=== PATIENT | female | born 1980 | race Caucasian/White ===

== ENCOUNTER 2018-04-25 15:58 | Emergency (ER) | payer BC, MEDICAID ==
[2018-04-25] MEDS: NS 0.9% 1000 ML* 2,000 ML IV ONE ×2 (16:56→16:57)
[2018-04-25 17:08] LABS: ABS Basophils 0.1 10^3/ul (0-0.2); ABS Eosinophils 0.1 10^3/ul (0-0.6); ABS Lymphocytes 1.6 10^3/ul (1.0-4.8); ABS Monocytes 0.3 10^3/ul (0-0.8); ABS Neutrophils 4.2 10^3/ul (1.5-7.7); ABS Nucleated RBC 0 10^3/ul; Eosinophil % 2.1 % (0-6); Hematocrit 33 % (35-47); Hemoglobin 10.3 g/dl (12.0-16.0); Lymphocyte % 25.4 % (25-47); Mean Corpuscular HGB Conc 31 g/dl (31-36); Mean Corpuscular Hemoglobin 22 pg (27-31); Mean Corpuscular Volume 71 fL (80-97); Mean Platelet Volume 9.8 um3 (7.4-10.4); Nucleated Red Blood Cells % 0.1; Platelet Count 205 10^3/ul (150-450); Red Blood Count 4.63 10^6/ul (4.0-5.4); Red Cell Distribution Width 19 % (10.5-15); White Blood Count 6.4 10^3/ul (3.5-10.8)
[2018-04-25 17:21] LABS: EGFR Non-African American 67.1 (>60)
--- NOTE | 2018-04-25 17:45 | RAD ---
INDICATION: Hyperglycemia. Asthma. COMPARISON: November 04, 2016 CT. TECHNIQUE: Dual energy PA and routine lateral views of the chest were obtained. REPORT: Clear lungs and pleural spaces. Negative for pneumothorax. The heart, pulmonary vasculature, and mediastinal contours are unremarkable. Unremarkable osseous structures and soft tissue contours accounting for obese body habitus. IMPRESSION: No evidence for pneumonia. No acute cardiopulmonary process evident.
[2018-04-25] MEDS ORDERED: Insulin REGULAR(*) 1 UNITS UNIT IV PUSH ONE (17:49)
[2018-04-25 17:51] LABS: Urine Appearance Clear; Urine Blood 3+ (Negative); Urine Color Yellow; Urine Ketones 2+ (Negative); Urine Protein 1+(30 mg/dL) (Negative); Urine Specific Gravity 1.032 (1.010-1.030); Urine Urobilinogen Negative (Negative)
[2018-04-25] MEDS ORDERED: NS 0.9% 1000 ML* 1,000 ML IV ONE (19:26)
[2018-04-25 19:47] LABS: Urine Appearance Cloudy; Urine Blood 3+ (Negative); Urine Color Yellow; Urine Ketones 2+ (Negative); Urine Protein Negative (Negative); Urine Specific Gravity 1.032 (1.010-1.030); Urine Urobilinogen Negative (Negative)
[2018-04-25 19:57] LABS: EGFR Non-African American 74.5 (>60)
[2018-04-25] MEDS ORDERED: Dextrose 50% Syringe 50 ML* 25 GM/50 ML SYRINGE IV PUSH PRN (20:14)
[2018-04-25] MEDS ORDERED: NS 0.9% 1000 ML* 1,000 ML IV SCH (20:15)
--- NOTE | 2018-04-25 21:41 | CONSULT ---
Consult Consult: PCP: Adilia Aguilar MD Date/Time: 04/25/20182009 Reason for Consult: mild DKA HPI: Mrs Fuentes is a 37YO HX DM2 previously on metformin until May of 2017 when she lost her insurance and reports being unable to afford it. She was advised that it is on the [employer] $4 formulary with a 3-month supply costing ~$ 10 regardless of insurance. She has been having polydipsia, polyuria, and weight loss. She denies F/C, cough, congestion, or other issues. She was given 6units regular insulin and 3L NS via ED with request for consideration of admission. However, while she is in a very mild DKA she can likely be managed more aggressively in the ED allowing for discharge. I have ordered an additional 10units SQ lispro and 2 more liters NS with a recheck BNP at 2200. PMedHx DM2 super morbid obesity Ambulatory Orders NK [No Home Medications Reported] 04/25/18 Allergies No Known Allergies Allergy (Verified 09/21/13 22:13) PSurgHx B 6th toe amputations as an SocHx: denies tobacco and recreational drugs, rare alcohol; single, no children ; full code status FamHx: Mother: multiple myeloma; Father: lung CA & CAD; sister: oral CA ROS: as above, otherwise reviewed and all were negative vitals: Vital Signs Temp 36.7 C 04/25/18 16:03 Pulse 101 04/25/18 19:41 Resp 17 04/25/18 20:10 BP 162/92 04/25/18 20:10 Pulse Ox 98 04/25/18 19:41 Intake & Output 04/24/18 04/25/18 04/25/18 23:59 11:59 23:59 Intake Total 4000 Balance 4000 Weight 140.16 kg Intake: IV Fluids 1999 IVPB 1999 Constitutional: NAD, normally developed, super morbidly obese female HEENM: atraumatic; sclera/conjunctiva: anicteric/clear; hearing: clinically intact; oropharynx: clear, dry Neck: soft tissue: non-tender; thyroid: normal Pulmonary: clear to auscultation bilaterally, good aeration, no accessory muscle use CV: RR/RR, normal S1S2, no carotid bruit, no jugular venous distention, 2+ B DP/ PT, no edema Abdominal: soft, non-distended, non-tender, no rebound/guarding/rigidity, normoactive bowel sounds, no hepatosplenomegaly or masses, no costovertebral angle tenderness Musculoskeletal: general: grossly intact, non-tender Integumental: normal appearance and texture of exposed skin Psychiatric orientation: AA&O to PPS affect: calm mood: cooperative eye contact: fair to good content: reliable responses: timely insight: fair Testing: Lab Results 04/25/18 04/25/18 04/25/18 Range/Units 16:56 16:56 16:56 WBC 6.4 (3.5-10.8) 10^3/ul RBC 4.63 (4.0-5.4) 10^6/ul Hgb 10.3 L (12.0-16.0) g/dl Hct 33 L (35-47) % MCV 71 L (80-97) fL MCH 22 L (27-31) pg MCHC 31 (31-36) g/dl RDW 19 H (10.5-15) % Plt Count 205 (150-450) 10^3/ul MPV 9.8 (7.4-10.4) um3 Neut % (Auto) 66.4 (38-83) % Lymph % (Auto) 25.4 (25-47) % [place] % (Auto) 4.5 (0-7) % Eos % (Auto) 2.1 (0-6) % Baso % (Auto) 1.6 (0-2) % Absolute Neuts (auto) 4.2 (1.5-7.7) 10^3/ul Absolute Lymphs (auto) 1.6 (1.0-4.8) 10^3/ul Absolute Monos (auto) 0.3 (0-0.8) 10^3/ul Absolute Eos (auto) 0.1 (0-0.6) 10^3/ul Absolute Basos (auto) 0.1 (0-0.2) 10^3/ul Absolute Nucleated RBC 0 10^3/ul Nucleated RBC % 0.1 VBG pH (7.33-7.43) VBG pCO2 (41-51) mmHg VBG pO2 (35-45) mmHg VBG HCO3 (24-28) mmol/L VBG O2 Saturation (70-80) % VBG Base Excess (0-4) Sodium 137 L (139-145) mmol/L Potassium 4.3 (3.5-5.0) mmol/L Chloride 102 (101-111) mmol/L Carbon Dioxide 20 L (22-32) mmol/L Anion Gap 15 H (2-11) mmol/L BUN 8 (6-24) mg/dL Creatinine 0.93 (0.51-0.95) mg/dL Est GFR ( Amer) 86.3 (>60) Est GFR (Non-Af Amer) 67.1 (>60) BUN/Creatinine Ratio 8.6 (8-20) Glucose 355 H (70-100) mg/dL POC Glucose (mg/dL) (70-100) mg/dL Lactic Acid 0.9 (0.5-2.0) mmol/L Calcium 8.8 (8.6-10.3) mg/dL Total Bilirubin 0.50 (0.2-1.0) mg/dL AST 49 H (13-39) U/L ALT 55 H (7-52) U/L Alkaline Phosphatase 76 (34-104) U/L Total Creatine Kinase 97 (10-223) U/L C-Reactive Protein 5.09 H (< 5.00) mg/L Total Protein 7.5 (6.4-8.9) g/dL Albumin 4.2 (3.2-5.2) g/dL Globulin 3.3 (2-4) g/dL Albumin/Globulin Ratio 1.3 (1-3) Beta HCG, Quant < 0.60 mIU/mL Urine Color Urine Appearance Urine pH (5-9) Ur Specific [place] (1.010-1.030) Urine Protein (Negative) Urine Ketones (Negative) Urine Blood (Negative) Urine Nitrate (Negative) Urine Bilirubin (Negative) Urine Urobilinogen (Negative) Ur Leukocyte Esterase (Negative) Urine WBC (Auto) (Absent) Urine RBC (Auto) (Absent) Ur Squamous Epith Cells (Absent) Urine Bacteria (Absent) Urine Yeast (Absent) Urine Glucose (Negative) 04/25/18 04/25/18 04/25/18 Range/Units 16:56 17:36 19:29 WBC (3.5-10.8) 10^3/ul RBC (4.0-5.4) 10^6/ul Hgb (12.0-16.0) g/dl Hct (35-47) % MCV (80-97) fL MCH (27-31) pg MCHC (31-36) g/dl RDW (10.5-15) % Plt Count (150-450) 10^3/ul MPV (7.4-10.4) um3 Neut % (Auto) (38-83) % Lymph % (Auto) (25-47) % [place] % (Auto) (0-7) % Eos % (Auto) (0-6) % Baso % (Auto) (0-2) % Absolute Neuts (auto) (1.5-7.7) 10^3/ul Absolute Lymphs (auto) (1.0-4.8) 10^3/ul Absolute Monos (auto) (0-0.8) 10^3/ul Absolute Eos (auto) (0-0.6) 10^3/ul Absolute Basos (auto) (0-0.2) 10^3/ul Absolute Nucleated RBC 10^3/ul Nucleated RBC % VBG pH 7.30 L (7.33-7.43) VBG pCO2 38 L (41-51) mmHg VBG pO2 38 (35-45) mmHg VBG HCO3 18.9 L (24-28) mmol/L VBG O2 Saturation 74.8 (70-80) % VBG Base Excess -7.1 L (0-4) Sodium (139-145) mmol/L Potassium (3.5-5.0) mmol/L Chloride (101-111) mmol/L Carbon Dioxide (22-32) mmol/L Anion Gap (2-11) mmol/L BUN (6-24) mg/dL Creatinine (0.51-0.95) mg/dL Est GFR ( Amer) (>60) Est GFR (Non-Af Amer) (>60) BUN/Creatinine Ratio (8-20) Glucose (70-100) mg/dL POC Glucose (mg/dL) (70-100) mg/dL Lactic Acid (0.5-2.0) mmol/L Calcium (8.6-10.3) mg/dL Total Bilirubin (0.2-1.0) mg/dL AST (13-39) U/L ALT (7-52) U/L Alkaline Phosphatase (34-104) U/L Total Creatine Kinase (10-223) U/L C-Reactive Protein (< 5.00) mg/L Total Protein (6.4-8.9) g/dL Albumin (3.2-5.2) g/dL Globulin (2-4) g/dL Albumin/Globulin Ratio (1-3) Beta HCG, Quant mIU/mL Urine Color Yellow Yellow Urine Appearance Clear Cloudy Urine pH 5.0 5.0 (5-9) Ur Specific [place] 1.032 H 1.032 H (1.010-1.030) Urine Protein 1+(30 mg/dl) A Negative (Negative) Urine Ketones 2+ A 2+ A (Negative) Urine Blood 3+ A 3+ A (Negative) Urine Nitrate Negative Negative (Negative) Urine Bilirubin Negative Negative (Negative) Urine Urobilinogen Negative Negative (Negative) Ur Leukocyte Esterase Negative Trace A (Negative) Urine WBC (Auto) 2+(11-20/hpf) A 2+(11-20/hpf) A (Absent) Urine RBC (Auto) 3+(>10/hpf) A 3+(>10/hpf) A (Absent) Ur Squamous Epith Cells Present A Present A (Absent) Urine Bacteria 1+ A Absent (Absent) Urine Yeast Present A (Absent) Urine Glucose 3+(>=500 mg/dl) A 3+(>=500 mg/dl) A (Negative) 04/25/18 04/25/18 04/25/18 Range/Units 19:31 19:46 22:46 WBC (3.5-10.8) 10^3/ul RBC (4.0-5.4) 10^6/ul Hgb (12.0-16.0) g/dl Hct (35-47) % MCV (80-97) fL MCH (27-31) pg MCHC (31-36) g/dl RDW (10.5-15) % Plt Count (150-450) 10^3/ul MPV (7.4-10.4) um3 Neut % (Auto) (38-83) % Lymph % (Auto) (25-47) % [place] % (Auto) (0-7) % Eos % (Auto) (0-6) % Baso % (Auto) (0-2) % Absolute Neuts (auto) (1.5-7.7) 10^3/ul Absolute Lymphs (auto) (1.0-4.8) 10^3/ul Absolute Monos (auto) (0-0.8) 10^3/ul Absolute Eos (auto) (0-0.6) 10^3/ul Absolute Basos (auto) (0-0.2) 10^3/ul Absolute Nucleated RBC 10^3/ul Nucleated RBC % VBG pH (7.33-7.43) VBG pCO2 (41-51) mmHg VBG pO2 (35-45) mmHg VBG HCO3 (24-28) mmol/L VBG O2 Saturation (70-80) % VBG Base Excess (0-4) Sodium 137 L 137 L (139-145) mmol/L Potassium 4.0 3.8 (3.5-5.0) mmol/L Chloride 105 108 (101-111) mmol/L Carbon Dioxide 18 L 20 L (22-32) mmol/L Anion Gap 14 H 9 (2-11) mmol/L BUN 8 9 (6-24) mg/dL Creatinine 0.85 0.90 (0.51-0.95) mg/dL Est GFR ( Amer) 95.8 89.6 (>60) Est GFR (Non-Af Amer) 74.5 69.7 (>60) BUN/Creatinine Ratio 9.4 10.0 (8-20) Glucose 281 H 308 H (70-100) mg/dL POC Glucose (mg/dL) 273 H (70-100) mg/dL Lactic Acid (0.5-2.0) mmol/L Calcium 8.5 L 8.3 L (8.6-10.3) mg/dL Total Bilirubin (0.2-1.0) mg/dL AST (13-39) U/L ALT (7-52) U/L Alkaline Phosphatase (34-104) U/L Total Creatine Kinase (10-223) U/L C-Reactive Protein (< 5.00) mg/L Total Protein (6.4-8.9) g/dL Albumin (3.2-5.2) g/dL Globulin (2-4) g/dL Albumin/Globulin Ratio (1-3) Beta HCG, Quant mIU/mL Urine Color Urine Appearance Urine pH (5-9) Ur Specific [place] (1.010-1.030) Urine Protein (Negative) Urine Ketones (Negative) Urine Blood (Negative) Urine Nitrate (Negative) Urine Bilirubin (Negative) Urine Urobilinogen (Negative) Ur Leukocyte Esterase (Negative) Urine WBC (Auto) (Absent) Urine RBC (Auto) (Absent) Ur Squamous Epith Cells (Absent) Urine Bacteria (Absent) Urine Yeast (Absent) Urine Glucose (Negative) CXR, personally reviewed: IMPRESSION: No evidence for pneumonia. No acute cardiopulmonary process evident. Impression: 37F HX DIAGNOSIS & PLAN Primary mild DKA : add A1c to ED labs : IVFs : insulin : recheck labs revealed resolution of her anion gap : Rx for 500mg metformin ER 2 tabs BID #[id number] sent to [facility] pharmacy : Call PCP Saturday AM for appointment within the next 2 weeks (prior to running out of metformin) : Return to ED for any symptoms worrisome enough to warrant emergency evaluation. Secondary super morbid obesity : diet & exercise for weight loss, consider surgical referral as outpatient
[2018-04-25 23:15] LABS: EGFR Non-African American 69.7 (>60)
[2018-04-26 00:08] VITALS: BP 158/74
--- NOTE | 2018-04-26 14:14 | ED ---
Boris Grimm Rebecca, scribed for Dell Villalba MD on 04/25/18 at 1641 . HPI Diabetic - HPI Summary HPI Summary: Pt is a 37 y/o F who presents to ED c/o elevated BG and recent weight loss. Pt reports that in the last 1.5 weeks, she has lost 23 pounds. At home her BG was 346 and after eating lunch, it was 392. Additionally c/o polyuria (every 20 minutes) and polydipsia, drinking about 3 gallons of water a day. PMHx DM - has not been on medication since July 2017 as she previously did not have insurance. Negative PMHx HTN. - History Of Current Complaint Chief Complaint: EDDiabeticProb Time Seen by Provider: 04/25/18 16:26 Hx Obtained From: Patient Hx Last Menstrual Period: 10/25/16 Onset/Duration: Still Present Severity Currently: None Character: Alert Aggravating: Nothing Alleviating: Nothing Associated Signs & Symptoms: Polydipsia, Polyuria - Allergies/Home Medications Allergies/Adverse Reactions: Allergies Allergy/AdvReac Type Severity Reaction Status Date / Time No Known Allergies Allergy Verified 09/21/13 22:13 Home Medications: Home Medications NK [No Home Medications Reported] 04/25/18 [History Confirmed 04/25/18] PMH/Surg Hx/FS Hx/Imm Hx Endocrine/Hematology History: Reports: Hx Diabetes Cardiovascular History: Denies: Hx Hypertension Respiratory History: Reports: Hx Asthma Sensory History: Reports: Hx Contacts or Glasses Opthamlomology History: Reports: Hx Contacts or Glasses - Surgical History Surgery Procedure, Year, and Place: TOE REMOVED FROM BILAT FEET A BABY Infectious Disease History: No Infectious Disease History: Denies: Traveled Outside the [place] in Last 30 Days - Family History Known Family History: Positive: Hypertension - Social History Alcohol Use: Rare Hx Substance Use: No Substance Use Type: Reports: None Hx Tobacco Use: No Smoking Status (MU): Never Smoked Tobacco Review of Systems Positive: Other - Polydipsia, elevated BG, weight loss. Negative: Fever Positive: other - Polyuria All Other Systems Reviewed And Are Negative: Yes Physical Exam - Summary Physical Exam Summary: VITAL SIGNS: Reviewed. GENERAL: ~Patient is an obese female who is lying comfortable in the stretcher. ~Patient is not in any acute respiratory distress. HEAD AND FACE: No signs of trauma. ~No ecchymosis, hematomas or skull depressions. No sinus tenderness. EYES: PERRLA, EOMI x 2, No injected conjunctiva, no nystagmus. EARS: Hearing grossly intact. Ear canals and tympanic membranes are within normal limits. MOUTH: She has a dry mouth. NECK: Supple, trachea is midline, no adenopathy, no JVD, no carotid bruit, no c- spine tenderness, neck with full ROM. CHEST: Symmetric, no tenderness at palpation LUNGS: Clear to auscultation bilaterally. No wheezing or crackles. CVS: Regular rate and rhythm, S1 and S2 present, no murmurs or gallops appreciated. ABDOMEN: Soft, non-tender. No signs of distention. No rebound no guarding, and no masses palpated. Bowel sounds are normal. EXTREMITIES: FROM in all major joints, no edema, no cyanosis or clubbing. NEURO: Alert and oriented x 3. No acute neurological deficits. Speech is normal and follows commands. SKIN: Dry and warm Triage Information Reviewed: Yes Vital Signs On Initial Exam: Initial Vitals Temp Pulse Resp BP Pulse Ox 98.1 F 112 22 190/119 96 04/25/18 16:03 04/25/18 16:03 04/25/18 16:03 04/25/18 16:03 04/25/18 16:03 Vital Signs Reviewed: Yes Diagnostics - Vital Signs Vital Signs Temp Pulse Resp BP Pulse Ox 04/25/18 16:25 11 04/25/18 16:03 98.1 F 112 22 190/119 96 - Laboratory Lab Results: Lab Results 04/25/18 04/25/18 04/25/18 Range/Units 16:56 16:56 16:56 WBC 6.4 (3.5-10.8) 10^3/ul RBC 4.63 (4.0-5.4) 10^6/ul Hgb 10.3 L (12.0-16.0) g/dl Hct 33 L (35-47) % MCV 71 L (80-97) fL MCH 22 L (27-31) pg MCHC 31 (31-36) g/dl RDW 19 H (10.5-15) % Plt Count 205 (150-450) 10^3/ul MPV 9.8 (7.4-10.4) um3 Neut % (Auto) 66.4 (38-83) % Lymph % (Auto) 25.4 (25-47) % [place] % (Auto) 4.5 (0-7) % Eos % (Auto) 2.1 (0-6) % Baso % (Auto) 1.6 (0-2) % Absolute Neuts (auto) 4.2 (1.5-7.7) 10^3/ul Absolute Lymphs (auto) 1.6 (1.0-4.8) 10^3/ul Absolute Monos (auto) 0.3 (0-0.8) 10^3/ul Absolute Eos (auto) 0.1 (0-0.6) 10^3/ul Absolute Basos (auto) 0.1 (0-0.2) 10^3/ul Absolute Nucleated RBC 0 10^3/ul Nucleated RBC % 0.1 VBG pH (7.33-7.43) VBG pCO2 (41-51) mmHg VBG pO2 (35-45) mmHg VBG HCO3 (24-28) mmol/L VBG O2 Saturation (70-80) % VBG Base Excess (0-4) Sodium 137 L (139-145) mmol/L Potassium 4.3 (3.5-5.0) mmol/L Chloride 102 (101-111) mmol/L Carbon Dioxide 20 L (22-32) mmol/L Anion Gap 15 H (2-11) mmol/L BUN 8 (6-24) mg/dL Creatinine 0.93 (0.51-0.95) mg/dL Est GFR ( Amer) 86.3 (>60) Est GFR (Non-Af Amer) 67.1 (>60) BUN/Creatinine Ratio 8.6 (8-20) Glucose 355 H (70-100) mg/dL POC Glucose (mg/dL) (70-100) mg/dL Lactic Acid 0.9 (0.5-2.0) mmol/L Calcium 8.8 (8.6-10.3) mg/dL Total Bilirubin 0.50 (0.2-1.0) mg/dL AST 49 H (13-39) U/L ALT 55 H (7-52) U/L Alkaline Phosphatase 76 (34-104) U/L Total Creatine Kinase 97 (10-223) U/L C-Reactive Protein 5.09 H (< 5.00) mg/L Total Protein 7.5 (6.4-8.9) g/dL Albumin 4.2 (3.2-5.2) g/dL Globulin 3.3 (2-4) g/dL Albumin/Globulin Ratio 1.3 (1-3) Beta HCG, Quant < 0.60 mIU/mL Urine Color Urine Appearance Urine pH (5-9) Ur Specific [place] (1.010-1.030) Urine Protein (Negative) Urine Ketones (Negative) Urine Blood (Negative) Urine Nitrate (Negative) Urine Bilirubin (Negative) Urine Urobilinogen (Negative) Ur Leukocyte Esterase (Negative) Urine WBC (Auto) (Absent) Urine RBC (Auto) (Absent) Ur Squamous Epith Cells (Absent) Urine Bacteria (Absent) Urine Yeast (Absent) Urine Glucose (Negative) 04/25/18 04/25/18 04/25/18 Range/Units 16:56 17:36 19:29 WBC (3.5-10.8) 10^3/ul RBC (4.0-5.4) 10^6/ul Hgb (12.0-16.0) g/dl Hct (35-47) % MCV (80-97) fL MCH (27-31) pg MCHC (31-36) g/dl RDW (10.5-15) % Plt Count (150-450) 10^3/ul MPV (7.4-10.4) um3 Neut % (Auto) (38-83) % Lymph % (Auto) (25-47) % [place] % (Auto) (0-7) % Eos % (Auto) (0-6) % Baso % (Auto) (0-2) % Absolute Neuts (auto) (1.5-7.7) 10^3/ul Absolute Lymphs (auto) (1.0-4.8) 10^3/ul Absolute Monos (auto) (0-0.8) 10^3/ul Absolute Eos (auto) (0-0.6) 10^3/ul Absolute Basos (auto) (0-0.2) 10^3/ul Absolute Nucleated RBC 10^3/ul Nucleated RBC % VBG pH 7.30 L (7.33-7.43) VBG pCO2 38 L (41-51) mmHg VBG pO2 38 (35-45) mmHg VBG HCO3 18.9 L (24-28) mmol/L VBG O2 Saturation 74.8 (70-80) % VBG Base Excess -7.1 L (0-4) Sodium (139-145) mmol/L Potassium (3.5-5.0) mmol/L Chloride (101-111) mmol/L Carbon Dioxide (22-32) mmol/L Anion Gap (2-11) mmol/L BUN (6-24) mg/dL Creatinine (0.51-0.95) mg/dL Est GFR ( Amer) (>60) Est GFR (Non-Af Amer) (>60) BUN/Creatinine Ratio (8-20) Glucose (70-100) mg/dL POC Glucose (mg/dL) (70-100) mg/dL Lactic Acid (0.5-2.0) mmol/L Calcium (8.6-10.3) mg/dL Total Bilirubin (0.2-1.0) mg/dL AST (13-39) U/L ALT (7-52) U/L Alkaline Phosphatase (34-104) U/L Total Creatine Kinase (10-223) U/L C-Reactive Protein (< 5.00) mg/L Total Protein (6.4-8.9) g/dL Albumin (3.2-5.2) g/dL Globulin (2-4) g/dL Albumin/Globulin Ratio (1-3) Beta HCG, Quant mIU/mL Urine Color Yellow Yellow Urine Appearance Clear Cloudy Urine pH 5.0 5.0 (5-9) Ur Specific [place] 1.032 H 1.032 H (1.010-1.030) Urine Protein 1+(30 mg/dl) A Negative (Negative) Urine Ketones 2+ A 2+ A (Negative) Urine Blood 3+ A 3+ A (Negative) Urine Nitrate Negative Negative (Negative) Urine Bilirubin Negative Negative (Negative) Urine Urobilinogen Negative Negative (Negative) Ur Leukocyte Esterase Negative Trace A (Negative) Urine WBC (Auto) 2+(11-20/hpf) A 2+(11-20/hpf) A (Absent) Urine RBC (Auto) 3+(>10/hpf) A 3+(>10/hpf) A (Absent) Ur Squamous Epith Cells Present A Present A (Absent) Urine Bacteria 1+ A Absent (Absent) Urine Yeast Present A (Absent) Urine Glucose 3+(>=500 mg/dl) A 3+(>=500 mg/dl) A (Negative) 04/25/18 04/25/18 Range/Units 19:31 19:46 WBC (3.5-10.8) 10^3/ul RBC (4.0-5.4) 10^6/ul Hgb (12.0-16.0) g/dl Hct (35-47) % MCV (80-97) fL MCH (27-31) pg MCHC (31-36) g/dl RDW (10.5-15) % Plt Count (150-450) 10^3/ul MPV (7.4-10.4) um3 Neut % (Auto) (38-83) % Lymph % (Auto) (25-47) % Worth % (Auto) (0-7) % Eos % (Auto) (0-6) % Baso % (Auto) (0-2) % Absolute Neuts (auto) (1.5-7.7) 10^3/ul Absolute Lymphs (auto) (1.0-4.8) 10^3/ul Absolute Monos (auto) (0-0.8) 10^3/ul Absolute Eos (auto) (0-0.6) 10^3/ul Absolute Basos (auto) (0-0.2) 10^3/ul Absolute Nucleated RBC 10^3/ul Nucleated RBC % VBG pH (7.33-7.43) VBG pCO2 (41-51) mmHg VBG pO2 (35-45) mmHg VBG HCO3 (24-28) mmol/L VBG O2 Saturation (70-80) % VBG Base Excess (0-4) Sodium 137 L (139-145) mmol/L Potassium 4.0 (3.5-5.0) mmol/L Chloride 105 (101-111) mmol/L Carbon Dioxide 18 L (22-32) mmol/L Anion Gap 14 H (2-11) mmol/L BUN 8 (6-24) mg/dL Creatinine 0.85 (0.51-0.95) mg/dL Est GFR ( Amer) 95.8 (>60) Est GFR (Non-Af Amer) 74.5 (>60) BUN/Creatinine Ratio 9.4 (8-20) Glucose 281 H (70-100) mg/dL POC Glucose (mg/dL) 273 H (70-100) mg/dL Lactic Acid (0.5-2.0) mmol/L Calcium 8.5 L (8.6-10.3) mg/dL Total Bilirubin (0.2-1.0) mg/dL AST (13-39) U/L ALT (7-52) U/L Alkaline Phosphatase (34-104) U/L Total Creatine Kinase (10-223) U/L C-Reactive Protein (< 5.00) mg/L Total Protein (6.4-8.9) g/dL Albumin (3.2-5.2) g/dL Globulin (2-4) g/dL Albumin/Globulin Ratio (1-3) Beta HCG, Quant mIU/mL Urine Color Urine Appearance Urine pH (5-9) Ur Specific [place] (1.010-1.030) Urine Protein (Negative) Urine Ketones (Negative) Urine Blood (Negative) Urine Nitrate (Negative) Urine Bilirubin (Negative) Urine Urobilinogen (Negative) Ur Leukocyte Esterase (Negative) Urine WBC (Auto) (Absent) Urine RBC (Auto) (Absent) Ur Squamous Epith Cells (Absent) Urine Bacteria (Absent) Urine Yeast (Absent) Urine Glucose (Negative) Result Diagrams: 04/25/18 16:56 04/25/18 19:31 Lab Statement: Any lab studies that have been ordered have been reviewed, and results considered in the medical decision making process. - Radiology CXR Xray Interpretation: No Acute Changes - No evidence for pneumonia. No acute cardiopulmonary process evident. ED physician reviewed this radiology report. Radiology Interpretation Completed By: Radiologist Diabetic Course/Dx - Course Assessment/Plan: This patient is a 37-year-old female who presents to the emergency department with a chief complaint of polydipsia polyuria and polyphagia. She reports that she has past medical history significant for diabetes but she is not taking any of her medications. Physical shows a chronic microcytic hypochromic anemia, sodium 137, carbon dioxide of 20 and a couple 15. LFTs are increase and glucose of 355. Urinalysis shows a high specific gravity, positive protein and ketones, and also it seems that is contaminated. In the ED the patient was given 3 L of IV fluids and also she was given insulin for the hyperglycemia. Succumb BMP shows the sodium is 137, carbon dioxide is 218 and a lap is 14 glucose is 273. The urine also shows 2+ ketones therefore believe that the patient still has ketones in the blood therefore she will need admission for further workup and management. I discussed my physical exam findings and test results with Dr. Gan from the hospitalist services and he reports that he will every the patient and he will make decision was admitted or discharged the patient. My recommendation the patient will will be admitted to the hospitalist for further workup and management. - Diagnoses Differential Dx: Diabetic Ketoacidosis, Hyperglycemia, Hypoglycemia Provider Diagnoses: Uncontrolled diabetes mellitus with hyperglycemia - Physician Notifications Discussed Care Of Patient With: Zane Leiva Time Discussed With Above Provider: 20:10 Instructed by Provider To: Other - Accepts pt for admission. Discharge - Sign-Out/Discharge Documenting (check all that apply): Discharge/Admit/Transfer - Admit - Discharge Plan Condition: Stable Disposition: ADMITTED TO [facility] Referrals: Chago Aguilar MD [Primary Care Provider] - The documentation as recorded by the Boris lopez Rebecca accurately reflects the service I personally performed and the decisions made by me, Dell Villalba MD.
[2018-04-26] MEDS ORDERED: Insulin LISPRO* 1 UNITS UNIT SUBCUT ONE (20:14)
== END 2018-04-26 00:07 | disposition home or self-care (01) ==
LOC: ED 15:58
DX: E11.65 Type 2 diabetes mellitus with hyperglycemia (principal); R63.1 Polydipsia; R53.83 Other fatigue
CPT/HCPCS: 36415; 71046; 80048; 80053; 81003; 81015; 82550; 82803; 83036; 83605; 84702; 85025; 86140; 87077; 87086; 96360; 96361; 99284; J1815

== ENCOUNTER 2019-05-07 11:46 | Inpatient (IN) | payer MEDICAID, OTHER ==
[2019-05-07 13:29] LABS: ABS Basophils 0.1 10^3/ul (0-0.2); ABS Eosinophils 0.1 10^3/ul (0-0.6); ABS Monocytes 0.4 10^3/ul (0-0.8); ABS Neutrophils 5.7 10^3/ul (1.5-7.7); Hematocrit 30 % (35-47); Hemoglobin 9.3 g/dL (12.0-16.0); Lymphocyte % 13.5 %; Mean Corpuscular HGB Conc 31 g/dL (31-36); Mean Corpuscular Hemoglobin 21 pg (27-31); Mean Platelet Volume 9.3 fL (7.4-10.4); Nucleated Red Blood Cells % 0.1; Platelet Count 227 10^3/uL (150-450); Red Blood Count 4.39 10^6 /uL (3.70-4.87); Red Cell Distribution Width 19 % (10-15); White Blood Count 7.4 10^3/uL (3.5-10.8)
[2019-05-07 13:43] LABS: Albumin 4.2 g/dL (3.2-5.2); Anion Gap 7 mmol/L (2-11); CO2 Carbon Dioxide 29 mmol/L (22-32); Calcium 9.2 mg/dL (8.6-10.3); Chloride 104 mmol/L (101-111); Potassium 3.9 mmol/L (3.5-5.0); Sodium 140 mmol/L (135-145)
[2019-05-07 13:49] LABS: ALT 42 U/L (7-52); AST 33 U/L (13-39); Albumin/Globulin Ratio 1.3 (1-3); Alkaline Phosphatase 59 U/L (34-104); BUN/Creatinine Ratio 9.3 (8-20); Blood Urea Nitrogen 8 mg/dL (6-24); EGFR African American 88.4 (>60); EGFR Non-African American 73.1 (>60); Globulin 3.3 g/dL (2-4); Glucose 108 mg/dL (70-100); Total Protein 7.5 g/dL (6.4-8.9)
[2019-05-07 14:24] LABS: Mean Corpuscular Volume 69 fL (80-97)
[2019-05-07 14:25] LABS: Microcytosis 2+
[2019-05-07 14:26] LABS: Polychromasia 1+
[2019-05-07] MEDS ORDERED: Albuterol/Ipratropium NEB.SOL* Albuterol 2.5 MG/Ipratropium 0.5 MG 3 ML INH ONE ×4 (15:53→17:22)
[2019-05-07] MEDS ORDERED: Dexamethasone IV* 4 MG/ML 1 ML (4 MG) IV SLOW PU ONE ×2 (15:53)
[2019-05-07] MEDS ORDERED: NS 0.9% 1000 ML** 1,000 ML IV ONE ×2 (15:53)
[2019-05-07] MEDS ORDERED: DOXYcycline CAP(*) 100 MG PO ONE ×2 (15:54)
--- NOTE | 2019-05-07 16:22 | ED ---
Shortness of Breath - HPI Summary HPI Summary: This patient is a 38 year old F presenting to [facility] accompanied by her friend with a chief complaint of SOB since 0800 this morning. Patient also endorses strong cough that constantly occurred since two days ago, which lead to SOB and WILLIAM today and caused her to come to the ED today. The pt rates the pain 4/10 in severity. Symptoms are not alleviated by Ventolin inhaler that was used yesterday. Pt reports subjective fever, dry throat, rhinorrhea since this morning. Patient has Hx of asthma that is brought up by exertion. Pt denies itchy/runny eyes, seasonal allergies, pain or swelling in legs, chills, erythema of eyes, sore throat, CP, abdominal pain, N/V, dysuria, hematuria, myalgia, edema, rash or dizziness. She states she has previously been on oxygen in the hospital and notes she has not come in for asthma before. PMHx of diabetes and PNA. - History of Current Complaint Chief Complaint: EDShortnessOfBreath Time Seen by Provider: 05/07/19 15:34 Hx Obtained From: Patient, Other: - friend Onset/Duration: Lasting Hours Current Severity: Mild Alleviating Factors: Nothing - not alleviated by Ventolin inhaler Associated Signs & Symptoms: Cough (Nonproductive), Fever - subjective, Nasal Congestion, Dizzy - lightheaded - Allergy/Home Medications Allergies/Adverse Reactions: Allergies Allergy/AdvReac Type Severity Reaction Status Date / Time No Known Allergies Allergy Verified 05/07/19 11:55 Home Medications: Home Medications Albuterol HFA INHALER* [Ventolin HFA Inhaler*] 2 puff INH Q6H PRN 05/07/19 [ History Confirmed 05/07/19] metFORMIN* [Glucophage 500 MG TAB *] 1,000 mg PO BID 05/07/19 [History Confirmed 05/07/19] PMH/Surg Hx/FS Hx/Imm Hx Endocrine/Hematology History: Reports: Hx Diabetes - Respiratory History: Reports: Hx Asthma - EXERCISE-INDUCED Infectious Disease History: No Infectious Disease History: Denies: Traveled Outside the [place] in Last 30 Days - Family History Known Family History: Positive: Cardiac Disease - father had CHF, Respiratory Disease - mother had mild COPD and asthma - Social History Alcohol Use: None Substance Use Type: Reports: None Smoking Status (MU): Former Smoker Review of Systems Positive: Fever - subjective. Negative: Chills Eyes: Negative - no itchy/runny eyes Negative: Erythema Positive: Nasal Discharge, Other - dry throat, rhinorrhea. Negative: Sore Throat Negative: Chest Pain Respiratory: Negative - no seasonal allergies Positive: Shortness Of Breath, Cough Negative: Abdominal Pain, Vomiting, Nausea Negative: dysuria, hematuria Negative: Myalgia, Edema - no pain/swelling in legs Negative: Rash Neurological: Other - negative - dizziness Positive: Headache All Other Systems Reviewed And Are Negative: Yes Physical Exam - Summary Physical Exam Summary: Constitutional: Well-developed, Well-nourished, Alert. (-) Distressed Skin: Warm, Dry HENT: Normocephalic; Atraumatic Eyes: Conjunctiva normal Neck: Musculoskeletal ROM normal neck. (-) JVD, (-) Stridor, (-) Tracheal deviation Cardio: Rhythm regular, rate normal, Heart sounds normal; Intact distal pulses; The pedal pulses are 2+ and symmetric. Radial pulses are 2+ and symmetric. (-) Murmur Pulmonary/Chest wall: Effort normal. (-) Respiratory distress, (+) expiratory wheezes, (-) Rales Abd: Soft, (-) tenderness, (-) Distension, (-) Guarding, (-) Rebound Musculoskeletal: (-) Edema Lymph: (-) Cervical adenopathy Neuro: Alert, Oriented x3 Psych: Mood and affect Normal Triage Information Reviewed: Yes Vital Signs On Initial Exam: Initial Vitals Temp Pulse Resp BP Pulse Ox 98.9 F 108 20 184/92 93 05/07/19 11:48 05/07/19 11:48 05/07/19 11:48 05/07/19 11:48 05/07/19 11:48 Vital Signs Reviewed: Yes Diagnostics - Vital Signs Vital Signs Temp Pulse Resp BP Pulse Ox 05/07/19 13:38 99.1 F 105 20 181/90 93 05/07/19 11:48 98.9 F 108 20 184/92 93 - Laboratory Lab Results: Lab Results 05/07/19 05/07/19 05/07/19 Range/Units 13:11 13:11 13:11 WBC 7.4 (3.5-10.8) 10^3/uL RBC 4.39 (3.70-4.87) 10^6 /uL Hgb 9.3 L (12.0-16.0) g/dL Hct 30 L (35-47) % MCV 69 L (80-97) fL MCH 21 L (27-31) pg MCHC 31 (31-36) g/dL RDW 19 H (10-15) % Plt Count 227 (150-450) 10^3/uL MPV 9.3 (7.4-10.4) fL Neut % (Auto) 77.5 % Lymph % (Auto) 13.5 % [place] % (Auto) 6.0 % Eos % (Auto) 2.0 % Baso % (Auto) 1.0 % Absolute Neuts (auto) 5.7 (1.5-7.7) 10^3/ul Absolute Lymphs (auto) 1.0 (1.0-4.8) 10^3/ul Absolute Monos (auto) 0.4 (0-0.8) 10^3/ul Absolute Eos (auto) 0.1 (0-0.6) 10^3/ul Absolute Basos (auto) 0.1 (0-0.2) 10^3/ul Absolute Nucleated RBC 0.0 10^3/ul Nucleated RBC % 0.1 Polychromasia 1+ Hypochromasia 2+ Microcytosis 2+ Elliptocytes 1+ Hem Pathologist Commnt Pending D-Dimer, Quantitative (Less Than 230) ng/mL Sodium 140 (135-145) mmol/L Potassium 3.9 (3.5-5.0) mmol/L Chloride 104 (101-111) mmol/L Carbon Dioxide 29 (22-32) mmol/L Anion Gap 7 (2-11) mmol/L BUN 8 (6-24) mg/dL Creatinine 0.86 (0.51-0.95) mg/dL Est GFR ( Amer) 88.4 (>60) Est GFR (Non-Af Amer) 73.1 (>60) BUN/Creatinine Ratio 9.3 (8-20) Glucose 108 H (70-100) mg/dL Lactic Acid 0.8 (0.5-2.0) mmol/L Calcium 9.2 (8.6-10.3) mg/dL Total Bilirubin 0.40 (0.2-1.0) mg/dL AST 33 (13-39) U/L ALT 42 (7-52) U/L Alkaline Phosphatase 59 (34-104) U/L Troponin I 0.00 (<0.04) ng/mL Total Protein 7.5 (6.4-8.9) g/dL Albumin 4.2 (3.2-5.2) g/dL Globulin 3.3 (2-4) g/dL Albumin/Globulin Ratio 1.3 (1-3) 05/07/19 Range/Units 14:25 WBC (3.5-10.8) 10^3/uL RBC (3.70-4.87) 10^6 /uL Hgb (12.0-16.0) g/dL Hct (35-47) % MCV (80-97) fL MCH (27-31) pg MCHC (31-36) g/dL RDW (10-15) % Plt Count (150-450) 10^3/uL MPV (7.4-10.4) fL Neut % (Auto) % Lymph % (Auto) % [place] % (Auto) % Eos % (Auto) % Baso % (Auto) % Absolute Neuts (auto) (1.5-7.7) 10^3/ul Absolute Lymphs (auto) (1.0-4.8) 10^3/ul Absolute Monos (auto) (0-0.8) 10^3/ul Absolute Eos (auto) (0-0.6) 10^3/ul Absolute Basos (auto) (0-0.2) 10^3/ul Absolute Nucleated RBC 10^3/ul Nucleated RBC % Polychromasia Hypochromasia Microcytosis Elliptocytes Hem Pathologist Commnt D-Dimer, Quantitative 209 (Less Than 230) ng/mL Sodium (135-145) mmol/L Potassium (3.5-5.0) mmol/L Chloride (101-111) mmol/L Carbon Dioxide (22-32) mmol/L Anion Gap (2-11) mmol/L BUN (6-24) mg/dL Creatinine (0.51-0.95) mg/dL Est GFR ( Amer) (>60) Est GFR (Non-Af Amer) (>60) BUN/Creatinine Ratio (8-20) Glucose (70-100) mg/dL Lactic Acid (0.5-2.0) mmol/L Calcium (8.6-10.3) mg/dL Total Bilirubin (0.2-1.0) mg/dL AST (13-39) U/L ALT (7-52) U/L Alkaline Phosphatase (34-104) U/L Troponin I (<0.04) ng/mL Total Protein (6.4-8.9) g/dL Albumin (3.2-5.2) g/dL Globulin (2-4) g/dL Albumin/Globulin Ratio (1-3) Result Diagrams: 05/07/19 13:11 05/07/19 13:11 Lab Statement: Any lab studies that have been ordered have been reviewed, and results considered in the medical decision making process. - Radiology CHEST X-RAY Radiology Interpretation Completed By: Radiologist Summary of Radiographic Findings: NO ACTIVE CARDIOPULMONARY DISEASE. THESE FINDINGS WERE REVIEWED BY DR. WALTERS. - CT CTA CHEST CT Interpretation Completed By: Radiologist Summary of CT Findings: 1. No evidence of pulmonary embolus. 2. Cluster of ill- defined right lower lobe nodules, likely infectious or. inflammatory. 3. Borderline enlarged mediastinal lymph nodes as above. 4. Thyromegaly. THESE FINDINGS WERE REVIEWED BY DR. WALTERS. Re-Evaluation - Re-Evaluation First Re-eval Re-Evaluation Time: 20:24 Comment: Still tachycardic, 105 BPM, 88% oxygen on RA, still SOB Course/Dx - Course Course Of Treatment: This patient is a 38 year old F presenting to [facility] accompanied by her friend with a chief complaint of SOB since 0800 this morning. The CC is described as a strong cough that constantly occurred since Saturday afternoon, which lead to SOB and WILLIAM today and caused her to come to the ED today. The pt rates the pain 4/10 in severity. Symptoms are not alleviated by Ventolin inhaler that was used yesterday. Pt reports subjective fever, dry throat, rhinnorhea since this morning, asthma when exercising, and lightheadedness (per triage). Pt denies itchy/runny eyes, seasonal allergies, pain or swelling in legs, chills, erythema of eyes, sore throat, CP, abdominal pain, N/V, dysuria, hematuria, myalgia, edema, or rash. She states she has previously been on oxygen in the hospital and notes she has not come in for asthma. PMHx of diabetes and PNA. Physical Exam shows positive expiratory wheezes. Lab results show Hgb 9.3, Hct 30, MCV 69, MCH 21, RDW 19, and glucose 108. CHEST X-RAY IMPRESSION: NO ACTIVE CARDIOPULMONARY DISEASE. CTA CHEST IMPRESSION: 1. No evidence of pulmonary embolus. 2. Cluster of ill-defined right lower lobe nodules, likely infectious or. inflammatory. 3. Borderline enlarged mediastinal lymph nodes as above. 4. Thyromegaly. During ED course, patient received fluids, magnesium sulfate 2 gm IVPB, vibramycin 100 mg PO, decadron 8 mg IV SLOW PU, ceftriaxone sodium 1 gm in sodium chloride, 50 mls @ 100 mls/hr IVPB, Azithromycin 500 mg in 250 mls @ 250 mls/hr IVPB, duoneb x 2. 2023 - Still tachycardic, 105 BPM, 88% oxygen on RA, still SOB. Patient's case was discussed with Dr. Pham, Dr. Pham accepts for admission. - Diagnoses Provider Diagnoses: Community acquired pneumonia, Hypoxia - Physician Notifications Discussed Care of Patient With: Hardeep Pham Time Discussed With Above Provider: 20:30 Instructed by Provider To: Other - Patient's case was discussed with Dr. Pham , Dr. Pham accepts for admission. Discharge - Sign-Out/Discharge Documenting (check all that apply): Patient Departure - admit Patient Received Moderate/Deep Sedation with Procedure: No - Discharge Plan Condition: Good Disposition: ADMITTED TO [facility] Referrals: Chago Aguilar MD [Primary Care Provider] - - Attestation Statements Document Initiated by Scribe: Yes Documenting Scribe: JOSE MANUEL MCCULLOUGH Provider For Whom Scribe is Documenting (Include Credential): ESVIN WALTERS MD Scribe Attestation: JOSE MANUEL Grimm, scribed for ESVIN WALTERS MD on 05/07/19 at 2308. Status of Scribe Document: Ready
[2019-05-07] MEDS ORDERED: Iodixanol* (CONTRAST) 320 MG/ML 100 ML SDV IV ONE (18:42)
[2019-05-07] MEDS ORDERED: cefTRIAXone(*) 1 GM in NS 0.9% 50 ML* 50 ML IVPB ONE ×4 (20:27)
[2019-05-07] MEDS ORDERED: Azithromycin 500 mg/250 ml NS 500 MG/250 ML BAG IVPB ONE ×2 (20:27→23:45)
[2019-05-07] MEDS ORDERED: Magnesium Sulfate IV* 0.5 GM/ML 2 ML VIAL (1 GM) IVPB ONE ×2 (20:54)
[2019-05-07] MEDS ORDERED: Acetaminophen TAB* 325 MG PO PRN (21:47)
[2019-05-07] MEDS ORDERED: Albuterol 2.5 MG/3 ML NEB.SOL* (0.083%) INH PRN (21:47)
[2019-05-07 22:07] LABS: % Iron Saturation 3 % (15-55); Iron 18 ug/dL (50-212); Total Iron Binding Capacity 557 mcg/dL (250-450); Transferrin 398 mg/dL (203-362)
[2019-05-07] MEDS ORDERED: Benzonatate CAP* 100 MG PO PRN (22:08)
[2019-05-07 22:26] LABS: Ferritin 6.8 ng/mL (11-307)
[2019-05-07 22:55] LABS: Influenza A Molecular NEGATIVE (Negative); Influenza B Molecular NEGATIVE (Negative)
[2019-05-07] MEDS ORDERED: NS 0.9% 50 ML* 50 ML ONE (22:56)
[2019-05-08] MEDS: guaiFENesin/CODIEN 100MG-10MG* 5 ML UDC PO PRN ×2 (00:05→23:29)
[2019-05-08] MEDS: metFORMIN* 500 MG TAB PO SCH ×3 (00:33→23:29)
--- NOTE | 2019-05-08 00:38 | HP ---
CC: Dr. Chago Aguilar * HISTORY AND PHYSICAL: DATE OF ADMISSION: 05/07/19 PRIMARY CARE PROVIDER: Dr. Chago Aguilar. ATTENDING PHYSICIAN: Dr. Hardeep Pham * (dictated by Ilana Sweeney NP). CHIEF COMPLAINT: Shortness of breath and cough. HISTORY OF PRESENT ILLNESS: Ms. Fuentes is a 38-year-old female with past medical history of asthma, diabetes, and iron deficiency anemia, who presents to the emergency room today with complaints of shortness of breath and cough. The patient describes her asthma as being exercise induced and she reports that she has not had any problems related to her asthma since an inpatient admission that she had at this facility in 2016. She does report that she was with a friend within the last week, who did have an upper respiratory infection. In the last 2 days, she developed shortness of breath and cough along with malaise. She did have some episodes where she felt as though she had a fever, though did not actually check her temperature. She could hear herself wheezing at some point. She describes lightheadedness, headache, and generalized aching associated with cough. She did have an albuterol inhaler, which she apparently had filled in 2016 and she attempted to use this without any success. In the emergency room, the patient was noted to be anemic with an H and H of 9.3 and 30, which is consistent with her baseline. Labs were otherwise unremarkable. She was noted to be tachycardiac up into the 120s and hypertensive with systolics up into the 180s. She denies any history of hypertension. She had a chest x-ray, which was unremarkable and a CTA, which was unremarkable for PE, though it did show some right lower lobe nodules, which were described as likely infectious or inflammatory. The ED provider was concerned about poor peak flow readings, so the hospitalist service was asked to evaluate for admission. PAST MEDICAL HISTORY: 1. Asthma. 2. Diabetes mellitus, type 2. 3. Iron deficiency anemia. PAST SURGICAL HISTORY: None. HOME MEDICATIONS: 1. Albuterol MDI 2 puffs q.6 hours p.r.n. shortness of breath, wheezing. 2. Metformin 1000 mg p.o. b.i.d. ALLERGIES: No known drug allergies. FAMILY HISTORY: The patient's mother does have a history of COPD and asthma, though was never a smoker. The patient's father was reportedly a heavy smoker, ultimately had 3 myocardial infarctions, the first of which being at age 36. He did pass away last year from lung cancer. SOCIAL HISTORY: The patient denies any tobacco, alcohol or recreational drug use. She is not currently working at this time. She lives at home with her mother. The patient's mother, Nora Gonzalez will be her surrogate decision maker in the events she is unable to make her own decisions. REVIEW OF SYSTEMS: An 11-point review of systems was performed and all the pertinent positive and negative findings are in the HPI, all other other systems were negative. PHYSICAL EXAMINATION GENERAL: Ms. Fuentes is a well-developed, well-nourished, obese white woman sitting in bed, in no acute distress, but dyspneic. She appears her stated age. VITAL SIGNS: Temp 99.1, heart rate 106, respiratory rate 22, oxygen saturation 93% on room air, and blood pressure 167/100. HEENT: Head atraumatic, normocephalic. Visual dela cruz are grossly intact. Pupils equal, round, and reactive to light and accommodation. Extraocular movements intact. Oral mucous membranes are moist and without lesions. Tonsils without erythema or exudates. Oropharynx is clear. NECK: Full range of motion. Thyroid not palpable. Trachea at midline. There is questionable submandibular lymphadenopathy. RESPIRATORY: Symmetrical chest expansion. No chest wall deformities. Lungs significantly diminished to auscultation with scattered wheezing in the bases. No rhonchi or rubs. CARDIOVASCULAR: Regular rhythm, tachycardiac. S1, S2 present. No murmurs, rubs, or gallops. ABDOMEN: Soft, nontender to palpation. Bowel sounds normoactive throughout. EXTREMITIES: Skin warm and smooth bilaterally. No edema. No clubbing or cyanosis. MUSCULOSKELETAL: Full range of motion. No pain or deformities. NEURO: Awake, alert, and oriented x4. Cranial nerves II through XII grossly intact. Moves all extremities. SKIN: Grossly intact without lesions. DIAGNOSTIC STUDIES/LAB DATA: WBC 7.4, RBC 4.39, hemoglobin 9.3, hematocrit 30 , platelets 227. D-dimer 209. Sodium 140, potassium 3.9, chloride 104, carbon dioxide 29, BUN 8, creatinine 0.86, glucose 108, lactic acid 0.8. Troponin 0.00. Chest x-ray reads as no active cardiopulmonary disease. Chest CTA reads as no evidence of pulmonary embolus. Cluster of ill defined right lower lobe nodules likely infectious or inflammatory. Borderline enlarged mediastinal lymph nodes. Thyromegaly. ASSESSMENT AND PLAN: Ms. Fuentes is a 38-year-old female with past medical history of asthma, diabetes, and anemia, who presented to the emergency room today with complaints of shortness of breath and cough and was found to have an asthma exacerbation. The patient will be admitted under observation for: 1. Asthma exacerbation. I do have some concern as the patient's mother was not a smoker and has COPD, so I have ordered an alpha 1 antitrypsin level to rule out any genetic cause of her respiratory symptoms. The patient did reportedly have a poor peak flow reading here in the emergency room. I will continue peak flow reading every 4 hours while awake. I additionally have ordered nebulizers as needed. I have placed the patient on 30 mg of prednisone. I will note that she does report that she has had intense reactions to steroids in the past, so I felt it was appropriate to attempt her on a lower dose. She did receive a dose of dexamethasone here in the emergency room. I have initially ordered Tessalon Perles and guaifenesin with codeine for use at bedtime as the patient has been sleeping poorly due to her cough. Due to her tachycardia, I will monitor her on telemetry, although she is in sinus tach on tele, so I am not particularly concerned at this point. 2. Diabetes. The patient typically takes metformin at home, which I will continue. I will check an A1c, as she does not have a recent one on file here at the hospital. 3. Anemia. The patient reports that her anemia in the past has been labeled iron deficiency and she has taken iron supplementation in the past, though has not been taking that recently. I have ordered some iron studies to determine the degree of iron deficiency and I anticipate starting her on iron supplementation while here in the hospital. 4. FEN. The patient does not require any fluid resuscitation or electrolyte repletion at this time. I have ordered a consistent carb diet. 5. Code status: The patient will be a full code. 6. DVT prophylaxis. According to the DVT Risk Assessment, the patient scores a 2, putting her at moderate risk. I have ordered SCDs. TIME SPENT: Approximately 60 minutes were spent on this admission. Greater than half of that time spent face to face with the patient and her family obtaining my history and performing my physical exam and reviewing the plan of care. The case has been reviewed with my attending, Dr. Pham who is in agreement with the plan of care. ILANA SWEENEY [employer] [id number]/CPS #: [id number] VERONICA
[2019-05-08] MEDS ORDERED: Lisinopril TAB* 5 MG PO ONE (03:22)
[2019-05-08 07:08] LABS: ABS Monocytes 0.4 10^3/ul (0-0.8); ABS Neutrophils 6.8 10^3/ul (1.5-7.7); Hematocrit 30 % (35-47); Hemoglobin 9.1 g/dL (12.0-16.0); Lymphocyte % 12.6 %; Mean Corpuscular HGB Conc 30 g/dL (31-36); Mean Corpuscular Hemoglobin 21 pg (27-31); Mean Corpuscular Volume 69 fL (80-97); Mean Platelet Volume 9.3 fL (7.4-10.4); Nucleated Red Blood Cells % 0.1; Platelet Count 253 10^3/uL (150-450); Red Blood Count 4.31 10^6 /uL (3.70-4.87); Red Cell Distribution Width 19 % (10-15); White Blood Count 8.2 10^3/uL (3.5-10.8)
[2019-05-08 07:14] LABS: Calcium 9.6 mg/dL (8.6-10.3); Potassium 3.9 mmol/L (3.5-5.0)
[2019-05-08 07:20] LABS: BUN/Creatinine Ratio 9.5 (8-20); EGFR African American 90.9 (>60); EGFR Non-African American 75.1 (>60)
[2019-05-08] MEDS: Docusate CAP* 100 MG PO SCH (07:57)
[2019-05-08] MEDS: predniSONE TAB* 10 MG PO SCH (07:57)
[2019-05-08] MEDS: Ferrous Sulfate TAB* 325 MG PO SCH (07:57)
--- NOTE | 2019-05-08 11:58 | PN ---
Subjective Date of Service: 05/08/19 Interval History: Pt continues to have SOB, nonproductive cough, wheeze. She has h/o exercise- induced asthma managed on ventolin only. She states that she has weekly episodes of wheeze/SOB, but not daily. She states this typically occurs when she exerts herself. She has no complaints of fever, cough is nonproductive. She notes development of stuffiness, sneeze overnight. She has difficulty with steroids, noting that they make it difficult for her to sleep. She notes she was unable to sleep last night. Objective Active Medications: Acetaminophen (Tylenol Tab*) 650 mg PO Q4H PRN Albuterol (Ventolin 2.5 Mg/3 Ml Neb.Krista*) 2.5 mg INH [id number] AWAKE PRN Benzonatate (Tessalon Cap*) 100 mg PO BID PRN Docusate Sodium (Colace Cap*) 100 mg PO DAILY GA Ferrous Sulfate (Ferrous Sulfate Tab*) 325 mg PO DAILY GA Guaifenesin/Codeine Phosphate (Robitussin Ac 100mg-10mg*) 5 ml PO BEDTIME PRN Metformin HCl (Glucophage*) 1,000 mg PO 0000,1200 GA Prednisone (Deltasone Tab*) 30 mg PO DAILY GA Vital Signs: Temp Pulse Resp BP Pulse Ox 98.7 F 95 32 161/74 89 05/08/19 07:29 05/08/19 07:29 05/08/19 08:57 05/08/19 07:29 05/08/19 07:29 Oxygen Devices in Use Now: None Appearance: Pt sitting in chair with LE at floor. Audible wheeze heard, without respiratory distress-pt able to complete full sentences and no work of breathing. No acute distress. Cooperative, appropriate. Eyes: No Scleral Icterus, PERRLA Ears/Nose/Mouth/Throat: NL Teeth, Lips, Gums, Mucous Membranes Moist, - - Pharynx obstructed by tongue Neck: NL Appearance and Movements; NL JVP, Trachea Midline Respiratory: Symmetrical Chest Expansion and Respiratory Effort, - - Diffuse expiratory wheeze throughout lungs Cardiovascular: NL Sounds; No Murmurs; No JVD, RRR, No Edema Abdominal: NL Sounds; No Tenderness; No Distention, No Hepatosplenomegaly Extremities: No Edema, No Clubbing, Cyanosis Neurological: Alert and Oriented x 3 Result Diagrams: 05/08/19 06:37 05/08/19 06:37 Additional Lab and Data: Lab Results 05/07/19 05/07/19 05/07/19 Range/Units 13:11 13:11 13:11 WBC 7.4 (3.5-10.8) 10^3/uL RBC 4.39 (3.70-4.87) 10^6 /uL Hgb 9.3 L (12.0-16.0) g/dL Hct 30 L (35-47) % MCV 69 L (80-97) fL MCH 21 L (27-31) pg MCHC 31 (31-36) g/dL RDW 19 H (10-15) % Plt Count 227 (150-450) 10^3/uL MPV 9.3 (7.4-10.4) fL Neut % (Auto) 77.5 % Lymph % (Auto) 13.5 % Grand % (Auto) 6.0 % Eos % (Auto) 2.0 % Baso % (Auto) 1.0 % Absolute Neuts (auto) 5.7 (1.5-7.7) 10^3/ul Absolute Lymphs (auto) 1.0 (1.0-4.8) 10^3/ul Absolute Monos (auto) 0.4 (0-0.8) 10^3/ul Absolute Eos (auto) 0.1 (0-0.6) 10^3/ul Absolute Basos (auto) 0.1 (0-0.2) 10^3/ul Absolute Nucleated RBC 0.0 10^3/ul Nucleated RBC % 0.1 Polychromasia 1+ Hypochromasia 2+ Microcytosis 2+ Elliptocytes 1+ Hem Pathologist Commnt Pending D-Dimer, Quantitative (Less Than 230) ng/mL Sodium 140 (135-145) mmol/L Potassium 3.9 (3.5-5.0) mmol/L Chloride 104 (101-111) mmol/L Carbon Dioxide 29 (22-32) mmol/L Anion Gap 7 (2-11) mmol/L BUN 8 (6-24) mg/dL Creatinine 0.86 (0.51-0.95) mg/dL Est GFR ( Amer) 88.4 (>60) Est GFR (Non-Af Amer) 73.1 (>60) BUN/Creatinine Ratio 9.3 (8-20) Glucose 108 H (70-100) mg/dL Lactic Acid 0.8 (0.5-2.0) mmol/L Calcium 9.2 (8.6-10.3) mg/dL Total Bilirubin 0.40 (0.2-1.0) mg/dL AST 33 (13-39) U/L ALT 42 (7-52) U/L Alkaline Phosphatase 59 (34-104) U/L Troponin I 0.00 (<0.04) ng/mL Total Protein 7.5 (6.4-8.9) g/dL Albumin 4.2 (3.2-5.2) g/dL Globulin 3.3 (2-4) g/dL Albumin/Globulin Ratio 1.3 (1-3) /05/20 Range/Units 14:25 WBC (3.5-10.8) 10^3/uL RBC (3.70-4.87) 10^6 /uL Hgb (12.0-16.0) g/dL Hct (35-47) % MCV (80-97) fL MCH (27-31) pg MCHC (31-36) g/dL RDW (10-15) % Plt Count (150-450) 10^3/uL MPV (7.4-10.4) fL Neut % (Auto) % Lymph % (Auto) % Grand % (Auto) % Eos % (Auto) % Baso % (Auto) % Absolute Neuts (auto) (1.5-7.7) 10^3/ul Absolute Lymphs (auto) (1.0-4.8) 10^3/ul Absolute Monos (auto) (0-0.8) 10^3/ul Absolute Eos (auto) (0-0.6) 10^3/ul Absolute Basos (auto) (0-0.2) 10^3/ul Absolute Nucleated RBC 10^3/ul Nucleated RBC % Polychromasia Hypochromasia Microcytosis Elliptocytes Hem Pathologist Commnt D-Dimer, Quantitative 209 (Less Than 230) ng/mL Sodium (135-145) mmol/L Potassium (3.5-5.0) mmol/L Chloride (101-111) mmol/L Carbon Dioxide (22-32) mmol/L Anion Gap (2-11) mmol/L BUN (6-24) mg/dL Creatinine (0.51-0.95) mg/dL Est GFR ( Amer) (>60) Est GFR (Non-Af Amer) (>60) BUN/Creatinine Ratio (8-20) Glucose (70-100) mg/dL Lactic Acid (0.5-2.0) mmol/L Calcium (8.6-10.3) mg/dL Total Bilirubin (0.2-1.0) mg/dL AST (13-39) U/L ALT (7-52) U/L Alkaline Phosphatase (34-104) U/L Troponin I (<0.04) ng/mL Total Protein (6.4-8.9) g/dL Albumin (3.2-5.2) g/dL Globulin (2-4) g/dL Albumin/Globulin Ratio (1-3) Assess/Plan/Problems-Billing Assessment: 38yof PMHx asthma, DM II, iron deficiency anemia, obesity presents with cough, SOB, wheeze. - Patient Problems (1) Asthma exacerbation Comment: -Pt continues to have cough, SOB, wheeze; negative for leukocytosis, fever -Continue around the clock nebulizers -Continue low dose 30mg prednisone- pt states she is unable to tolerate more -Continue peak flow q4h- slowly trending up from 125 to 150 pretreatment (2) Viral URI Comment: -New onset sneeze, congestion -Afebrile, no leukocytosis, nonproductive cough- low suspicion for pna -Saline nasal spray, flonase (3) Hypertension Comment: -SBPs in 170's -Start lisinopril 10 (4) Difficulty sleeping Comment: -C/o difficulty sleeping with prednisone use, stating she has not slept since yesterday -Continue guafenecin with codeine cough syrup -Add melatonin (5) Iron deficiency anemia Comment: -H/o fe deficiency anemia, labs show continued fe deficiency -FOB ordered -Continue ferrous sulfate (6) Diabetes Comment: -HA1c 7.7 -Continue metformin 1000 BID (7) Morbid obesity Comment: -BMI 50; noted (8) DVT prophylaxis Comment: -SCDs (9) Full code status Status and Disposition: Observation. Discharge when stable.
[2019-05-08] MEDS ORDERED: Saline NASAL SPRAY 0.65%* BTL BOTH NARES PRN (12:11)
[2019-05-08] MEDS ORDERED: Albuterol/Ipratropium NEB.SOL* Albuterol 2.5 MG/Ipratropium 0.5 MG 3 ML ONE ×2 (12:31)
[2019-05-08] MEDS: Albuterol/Ipratropium NEB.SOL* Albuterol 2.5 MG/Ipratropium 0.5 MG 3 ML INH SCH ×3 (12:36→23:07)
[2019-05-08] MEDS: Fluticasone NASAL SPRAY 50MCG* 16 gm SPRAY BTL BOTH NARES SCH (13:21)
[2019-05-08] MEDS: Mometasone 220 MCG MDI INH SCH (19:07)
[2019-05-08] MEDS: Lisinopril TAB* 10 MG PO SCH (20:08)
[2019-05-08] MEDS ORDERED: hydrALAZINE IV* 20 MG/ML VIAL IV SLOW PU PRN (23:19)
[2019-05-08] MEDS: Melatonin 3 MG TAB PO SCH (23:30)
[2019-05-09] MEDS: Albuterol/Ipratropium NEB.SOL* Albuterol 2.5 MG/Ipratropium 0.5 MG 3 ML INH SCH ×4 (03:18→19:06)
[2019-05-09 06:05] LABS: ABS Basophils 0.1 10^3/ul (0-0.2); ABS Eosinophils 0.1 10^3/ul (0-0.6); ABS Lymphocytes 2.8 10^3/ul (1.0-4.8); ABS Monocytes 0.6 10^3/ul (0-0.8); ABS Neutrophils 6.9 10^3/ul (1.5-7.7); Eosinophil % 1.4 %; Hematocrit 29 % (35-47); Hemoglobin 8.7 g/dL (12.0-16.0); Lymphocyte % 26.8 %; Mean Corpuscular HGB Conc 30 g/dL (31-36); Mean Corpuscular Hemoglobin 21 pg (27-31); Mean Corpuscular Volume 70 fL (80-97); Mean Platelet Volume 9.1 fL (7.4-10.4); Nucleated Red Blood Cells % 0.1; Platelet Count 264 10^3/uL (150-450); Red Blood Count 4.18 10^6 /uL (3.70-4.87); Red Cell Distribution Width 19 % (10-15); White Blood Count 10.5 10^3/uL (3.5-10.8)
[2019-05-09] MEDS ORDERED: Albuterol/Ipratropium NEB.SOL* Albuterol 2.5 MG/Ipratropium 0.5 MG 3 ML INH PRN (08:28)
[2019-05-09] MEDS: Fluticasone NASAL SPRAY 50MCG* 16 gm SPRAY BTL BOTH NARES SCH (08:31)
[2019-05-09] MEDS: Lisinopril TAB* 10 MG PO SCH (08:32)
[2019-05-09] MEDS: Docusate CAP* 100 MG PO SCH (08:32)
[2019-05-09] MEDS: predniSONE TAB* 10 MG PO SCH (08:32)
[2019-05-09] MEDS: Ferrous Sulfate TAB* 325 MG PO SCH (08:32)
[2019-05-09] MEDS ORDERED: predniSONE TAB* 20 MG PO ONE (11:41)
--- NOTE | 2019-05-09 11:48 | PN ---
Subjective Date of Service: 05/09/19 Interval History: Pt states she has some improvement in breathing, but still SOB with wheeze, cough. She has difficulty walking or any activity without SOB. She c/o difficulty sleeping last night, which she attributes to steroids, stating she cannot tolerate them well. She agrees to increasing dose to 50 PO, but is unwilling to go any higher. Pt has long history of Fe deficiency anemia for which she is on Fe supplementation PO. She has irregular menses, stating she will skip a month sometimes. She describes flow as light one cycle, then medium, then heavy, but denies overtly heavy menses. Last menses was light, approximatly 1 week ago. She denies hematochezia, melena. Objective Active Medications: Acetaminophen (Tylenol Tab*) 650 mg PO Q4H PRN Albuterol/Ipratropium (Duoneb (Albuterol 2.5 Mg/Ipratropium 0.5 Mg)) 1 neb INH Q4H PRN Albuterol/Ipratropium (Duoneb (Albuterol 2.5 Mg/Ipratropium 0.5 Mg)) 1 neb INH [id number] AWAKE [place] Benzonatate (Tessalon Cap*) 100 mg PO BID PRN Docusate Sodium (Colace Cap*) 100 mg PO DAILY GA Ferrous Sulfate (Ferrous Sulfate Tab*) 325 mg PO DAILY GA Fluticasone Propionate (Flonase Nasal [place] 50mcg*) 2 spray BOTH NARES DAILY [place] Guaifenesin/Codeine Phosphate (Robitussin Ac 100mg-10mg*) 5 ml PO BEDTIME PRN Hydralazine HCl (Apresoline Iv*) 5 mg IV SLOW PU Q6H PRN Lisinopril (Prinivil Tab*) 10 mg PO DAILY GA Melatonin (Melatonin) 3 mg PO BEDTIME GA Metformin HCl (Glucophage*) 1,000 mg PO 0000,1200 [place] Mometasone Furoate (Asmanex 220 Mcg Mdi *) 2 puff INH QPM GA; Protocol Prednisone (Deltasone Tab*) 30 mg PO DAILY GA Prednisone (Deltasone Tab*) 20 mg PO ONCE ONE Sodium Chloride (Sodium Chloride 0.65% Nasal [place]*) 1 spray BOTH NARES Q4H PRN Vital Signs - 8 hr 05/09/19 05/09/19 05/09/19 03:54 06:34 08:00 Temperature 97.9 F 98.4 F Pulse Rate 89 81 Respiratory 20 20 20 Rate Blood Pressure 130/53 156/67 (mmHg) O2 Sat by Pulse 98 93 Oximetry 05/09/19 08:21 Temperature Pulse Rate 78 Respiratory 20 Rate Blood Pressure (mmHg) O2 Sat by Pulse 100 Oximetry Oxygen Devices in Use Now: None Appearance: Pt is sitting at edge of bed in tripod position with LE at floor. Difficulty finishing full sentences. Audible wheeze without stethoscope. Eyes: No Scleral Icterus, PERRLA Ears/Nose/Mouth/Throat: NL Teeth, Lips, Gums, Clear Oropharnyx, Mucous Membranes Moist Neck: NL Appearance and Movements; NL JVP, Trachea Midline Respiratory: Symmetrical Chest Expansion and Respiratory Effort, - - Wheeze throughout b/l lung dela cruz; decreased breath sounds and air exchange b/l Cardiovascular: NL Sounds; No Murmurs; No JVD, RRR, No Edema Abdominal: NL Sounds; No Tenderness; No Distention, No Hepatosplenomegaly Extremities: No Edema, No Clubbing, Cyanosis Neurological: Alert and Oriented x 3 Result Diagrams: 05/09/19 05:38 05/08/19 06:37 Additional Lab and Data: Lab Results 05/07/19 05/07/19 05/07/19 Range/Units 13:11 13:11 13:11 WBC 7.4 (3.5-10.8) 10^3/uL RBC 4.39 (3.70-4.87) 10^6 /uL Hgb 9.3 L (12.0-16.0) g/dL Hct 30 L (35-47) % MCV 69 L (80-97) fL MCH 21 L (27-31) pg MCHC 31 (31-36) g/dL RDW 19 H (10-15) % Plt Count 227 (150-450) 10^3/uL MPV 9.3 (7.4-10.4) fL Neut % (Auto) 77.5 % Lymph % (Auto) 13.5 % [place] % (Auto) 6.0 % Eos % (Auto) 2.0 % Baso % (Auto) 1.0 % Absolute Neuts (auto) 5.7 (1.5-7.7) 10^3/ul Absolute Lymphs (auto) 1.0 (1.0-4.8) 10^3/ul Absolute Monos (auto) 0.4 (0-0.8) 10^3/ul Absolute Eos (auto) 0.1 (0-0.6) 10^3/ul Absolute Basos (auto) 0.1 (0-0.2) 10^3/ul Absolute Nucleated RBC 0.0 10^3/ul Nucleated RBC % 0.1 Polychromasia 1+ Hypochromasia 2+ Microcytosis 2+ Elliptocytes 1+ Hem Pathologist Commnt Pending D-Dimer, Quantitative (Less Than 230) ng/mL Sodium 140 (135-145) mmol/L Potassium 3.9 (3.5-5.0) mmol/L Chloride 104 (101-111) mmol/L Carbon Dioxide 29 (22-32) mmol/L Anion Gap 7 (2-11) mmol/L BUN 8 (6-24) mg/dL Creatinine 0.86 (0.51-0.95) mg/dL Est GFR ( Amer) 88.4 (>60) Est GFR (Non-Af Amer) 73.1 (>60) BUN/Creatinine Ratio 9.3 (8-20) Glucose 108 H (70-100) mg/dL Lactic Acid 0.8 (0.5-2.0) mmol/L Calcium 9.2 (8.6-10.3) mg/dL Total Bilirubin 0.40 (0.2-1.0) mg/dL AST 33 (13-39) U/L ALT 42 (7-52) U/L Alkaline Phosphatase 59 (34-104) U/L Troponin I 0.00 (<0.04) ng/mL Total Protein 7.5 (6.4-8.9) g/dL Albumin 4.2 (3.2-5.2) g/dL Globulin 3.3 (2-4) g/dL Albumin/Globulin Ratio 1.3 (1-3) /05/20 Range/Units 14:25 WBC (3.5-10.8) 10^3/uL RBC (3.70-4.87) 10^6 /uL Hgb (12.0-16.0) g/dL Hct (35-47) % MCV (80-97) fL MCH (27-31) pg MCHC (31-36) g/dL RDW (10-15) % Plt Count (150-450) 10^3/uL MPV (7.4-10.4) fL Neut % (Auto) % Lymph % (Auto) % [place] % (Auto) % Eos % (Auto) % Baso % (Auto) % Absolute Neuts (auto) (1.5-7.7) 10^3/ul Absolute Lymphs (auto) (1.0-4.8) 10^3/ul Absolute Monos (auto) (0-0.8) 10^3/ul Absolute Eos (auto) (0-0.6) 10^3/ul Absolute Basos (auto) (0-0.2) 10^3/ul Absolute Nucleated RBC 10^3/ul Nucleated RBC % Polychromasia Hypochromasia Microcytosis Elliptocytes Hem Pathologist Commnt D-Dimer, Quantitative 209 (Less Than 230) ng/mL Sodium (135-145) mmol/L Potassium (3.5-5.0) mmol/L Chloride (101-111) mmol/L Carbon Dioxide (22-32) mmol/L Anion Gap (2-11) mmol/L BUN (6-24) mg/dL Creatinine (0.51-0.95) mg/dL Est GFR ( Amer) (>60) Est GFR (Non-Af Amer) (>60) BUN/Creatinine Ratio (8-20) Glucose (70-100) mg/dL Lactic Acid (0.5-2.0) mmol/L Calcium (8.6-10.3) mg/dL Total Bilirubin (0.2-1.0) mg/dL AST (13-39) U/L ALT (7-52) U/L Alkaline Phosphatase (34-104) U/L Troponin I (<0.04) ng/mL Total Protein (6.4-8.9) g/dL Albumin (3.2-5.2) g/dL Globulin (2-4) g/dL Albumin/Globulin Ratio (1-3) Assess/Plan/Problems-Billing Assessment: 38yof PMHx asthma, DM II, iron deficiency anemia, obesity presents with cough, SOB, wheeze. - Patient Problems (1) Asthma exacerbation Comment: -Pt continues to have cough, SOB, wheeze; negative for leukocytosis, fever -Concern pt may have asthma as well as COPD- she is non-smoker, but has FHx COPD without smoker status -Likely that iron deficiency is contributing to SOB -Continue around the clock nebulizers -Continue prednisone; increasing dose to 50 -Continue peak flow q4h- slowly trending up to 180 (2) Iron deficiency anemia Comment: -H/o fe deficiency anemia, labs show continued fe deficiency; worsening anemia -Likely contributing to SOB -FOB ordered -Continue ferrous sulfate; add IV iron x1 dose and recheck in a.m. -Continue to monitor (3) Hypertension Comment: -SBP improving to 130's -Continue lisinopril 10 (4) Viral URI Comment: -New onset sneeze, congestion -Afebrile, no leukocytosis, nonproductive cough- low suspicion for pna -Saline nasal spray, flonase (5) Difficulty sleeping Comment: -C/o difficulty sleeping with prednisone use, stating she has not slept since yesterday -Continue guafenecin with codeine cough syrup -Add melatonin (6) Diabetes Comment: -HA1c 7.7 -Continue metformin 1000 BID (7) Morbid obesity Comment: -BMI 50; noted (8) DVT prophylaxis Comment: -SCDs (9) Full code status Status and Disposition: Observation. Discharge when stable. Patient continues to have SOB, cough, wheeze that is likely multifactorial due to asthma, iron deficiency anemia, and possible COPD. She would benefit from another overnight stay in the hospital to attempt management of respiratory symptoms.
[2019-05-09] MEDS: metFORMIN* 500 MG TAB PO SCH (12:01)
[2019-05-09] MEDS ORDERED: Ferric Gluconate IV* 25 MG in NS 0.9% 50 ML* 50 ML IVPB ONE (12:03)
[2019-05-09] MEDS ORDERED: Ferric Gluconate IV* 100 MG in NS 0.9% 100 ML* 100 ML IVPB ONE (12:04)
[2019-05-09] MEDS ORDERED: Simethicone TAB* 80 MG TAB.CHEW PO PRN (18:40)
[2019-05-09] MEDS: Mometasone 220 MCG MDI INH SCH (19:06)
[2019-05-10] MEDS: metFORMIN* 500 MG TAB PO SCH ×2 (00:15→11:47)
[2019-05-10] MEDS: Melatonin 3 MG TAB PO SCH (00:15)
[2019-05-10] MEDS: guaiFENesin/CODIEN 100MG-10MG* 5 ML UDC PO PRN (00:16)
[2019-05-10] MEDS: Albuterol/Ipratropium NEB.SOL* Albuterol 2.5 MG/Ipratropium 0.5 MG 3 ML INH SCH ×4 (01:00→19:15)
[2019-05-10] MEDS: Loperamide CAP* 2 MG PO PRN ×2 (03:27→13:39)
[2019-05-10 07:35] LABS: ABS Basophils 0.1 10^3/ul (0-0.2); ABS Eosinophils 0.1 10^3/ul (0-0.6); ABS Lymphocytes 3.6 10^3/ul (1.0-4.8); ABS Monocytes 0.5 10^3/ul (0-0.8); ABS Neutrophils 6.6 10^3/ul (1.5-7.7); Hematocrit 30 % (35-47); Hemoglobin 8.9 g/dL (12.0-16.0); Lymphocyte % 33.1 %; Mean Corpuscular HGB Conc 30 g/dL (31-36); Mean Corpuscular Hemoglobin 21 pg (27-31); Mean Corpuscular Volume 69 fL (80-97); Nucleated Red Blood Cells % 0.2; Platelet Count 256 10^3/uL (150-450); Red Blood Count 4.29 10^6 /uL (3.70-4.87); Red Cell Distribution Width 19 % (10-15); White Blood Count 10.8 10^3/uL (3.5-10.8)
[2019-05-10] MEDS: Docusate CAP* 100 MG PO SCH (08:20)
[2019-05-10] MEDS: predniSONE TAB* 50 MG PO SCH (08:23)
[2019-05-10] MEDS: Ferrous Sulfate TAB* 325 MG PO SCH (08:23)
[2019-05-10] MEDS: Lisinopril TAB* 10 MG PO SCH (08:23)
[2019-05-10] MEDS: Fluticasone NASAL SPRAY 50MCG* 16 gm SPRAY BTL BOTH NARES SCH (08:23)
--- NOTE | 2019-05-10 14:16 | PN ---
Subjective Date of Service: 05/10/19 Interval History: Reports episodes of diarrhea and abdominal pain overnight. denies blood in the stool. denies fever or chills. denies chest pain. Continue to report shortness of breath with exertion. Family History: Unchanged from Admission Social History: Unchanged from Admission Past Medical History: Unchanged from Admission Objective Active Medications: Acetaminophen (Tylenol Tab*) 650 mg PO Q4H PRN PRN Reason: FEVER/PAIN Albuterol/Ipratropium (Duoneb (Albuterol 2.5 Mg/Ipratropium 0.5 Mg)) 1 neb INH Q4H PRN PRN Reason: SOB/WHEEZING Albuterol/Ipratropium (Duoneb (Albuterol 2.5 Mg/Ipratropium 0.5 Mg)) 1 neb INH [id number] AWAKE [facility] Last Admin: 05/10/19 12:50 Dose: 1 neb Benzonatate (Tessalon Cap*) 100 mg PO BID PRN PRN Reason: COUGH Last Admin: 05/07/19 23:03 Dose: 100 mg Docusate Sodium (Colace Cap*) 100 mg PO DAILY [facility] Last Admin: 05/10/19 08:20 Dose: Not Given Ferrous Sulfate (Ferrous Sulfate Tab*) 325 mg PO DAILY [facility] Last Admin: 05/10/19 08:23 Dose: 325 mg Fluticasone Propionate (Flonase Nasal [place] 50mcg*) 2 spray BOTH NARES DAILY [facility] Last Admin: 05/10/19 08:23 Dose: 2 spray Guaifenesin/Codeine Phosphate (Robitussin Ac 100mg-10mg*) 5 ml PO BEDTIME PRN PRN Reason: COUGH Last Admin: 05/10/19 00:16 Dose: 5 ml Hydralazine HCl (Apresoline Iv*) 5 mg IV SLOW PU Q6H PRN PRN Reason: SYSTOLIC BP GREATER THAN: Last Admin: 05/08/19 23:29 Dose: 5 mg Lisinopril (Prinivil Tab*) 10 mg PO DAILY [facility] Last Admin: 05/10/19 08:23 Dose: 10 mg Loperamide HCl (Imodium Cap*) 2 mg PO .SEE DIRECTIONS PRN PRN Reason: DIARRHEA Last Admin: 05/10/19 13:39 Dose: 2 mg Melatonin (Melatonin) 3 mg PO BEDTIME [facility] Last Admin: 05/10/19 00:15 Dose: 3 mg Metformin HCl (Glucophage*) 1,000 mg PO 0000,1200 [facility] Last Admin: 05/10/19 11:47 Dose: 1,000 mg Mometasone Furoate (Asmanex 220 Mcg Mdi *) 2 puff INH QPM [facility]; Protocol Last Admin: 05/09/19 19:06 Dose: 2 puff Prednisone (Deltasone Tab*) 50 mg PO DAILY [facility] Last Admin: 05/10/19 08:23 Dose: 50 mg Simethicone (Mylicon Tab*) 80 mg PO Q6H PRN PRN Reason: INDIGESTION Last Admin: 05/10/19 13:00 Dose: 80 mg Sodium Chloride (Sodium Chloride 0.65% Nasal [place]*) 1 spray BOTH NARES Q4H PRN PRN Reason: CONGESTION Vital Signs - 8 hr 05/10/19 05/10/19 05/10/19 07:40 08:00 08:08 Temperature 97.9 F Pulse Rate 86 81 Respiratory 18 16 16 Rate Blood Pressure (mmHg) O2 Sat by Pulse 99 92 Oximetry 05/10/19 05/10/19 05/10/19 11:22 12:51 13:39 Temperature 98.1 F Pulse Rate 82 89 Respiratory 16 18 16 Rate Blood Pressure 178/80 (mmHg) O2 Sat by Pulse 93 99 Oximetry Oxygen Devices in Use Now: None Appearance: alert, no acute distress Eyes: No Scleral Icterus Ears/Nose/Mouth/Throat: Clear Oropharnyx, Mucous Membranes Moist Neck: NL Appearance and Movements; NL JVP, Trachea Midline Respiratory: Symmetrical Chest Expansion and Respiratory Effort, - - diminished with few scattered exp wheezes. Cardiovascular: NL Sounds; No Murmurs; No JVD, No Edema Abdominal: NL Sounds; No Tenderness; No Distention Extremities: No Edema, No Clubbing, Cyanosis Skin: No Rash or Ulcers Neurological: Alert and Oriented x 3 Nutrition: Taking PO's Result Diagrams: 05/10/19 06:54 05/08/19 06:37 Additional Lab and Data: Lab Results 05/07/19 05/07/19 05/07/19 Range/Units 13:11 13:11 13:11 WBC 7.4 (3.5-10.8) 10^3/uL RBC 4.39 (3.70-4.87) 10^6 /uL Hgb 9.3 L (12.0-16.0) g/dL Hct 30 L (35-47) % MCV 69 L (80-97) fL MCH 21 L (27-31) pg MCHC 31 (31-36) g/dL RDW 19 H (10-15) % Plt Count 227 (150-450) 10^3/uL MPV 9.3 (7.4-10.4) fL Neut % (Auto) 77.5 % Lymph % (Auto) 13.5 % [place] % (Auto) 6.0 % Eos % (Auto) 2.0 % Baso % (Auto) 1.0 % Absolute Neuts (auto) 5.7 (1.5-7.7) 10^3/ul Absolute Lymphs (auto) 1.0 (1.0-4.8) 10^3/ul Absolute Monos (auto) 0.4 (0-0.8) 10^3/ul Absolute Eos (auto) 0.1 (0-0.6) 10^3/ul Absolute Basos (auto) 0.1 (0-0.2) 10^3/ul Absolute Nucleated RBC 0.0 10^3/ul Nucleated RBC % 0.1 Polychromasia 1+ Hypochromasia 2+ Microcytosis 2+ Elliptocytes 1+ Hem Pathologist Commnt Pending D-Dimer, Quantitative (Less Than 230) ng/mL Sodium 140 (135-145) mmol/L Potassium 3.9 (3.5-5.0) mmol/L Chloride 104 (101-111) mmol/L Carbon Dioxide 29 (22-32) mmol/L Anion Gap 7 (2-11) mmol/L BUN 8 (6-24) mg/dL Creatinine 0.86 (0.51-0.95) mg/dL Est GFR ( Amer) 88.4 (>60) Est GFR (Non-Af Amer) 73.1 (>60) BUN/Creatinine Ratio 9.3 (8-20) Glucose 108 H (70-100) mg/dL Lactic Acid 0.8 (0.5-2.0) mmol/L Calcium 9.2 (8.6-10.3) mg/dL Total Bilirubin 0.40 (0.2-1.0) mg/dL AST 33 (13-39) U/L ALT 42 (7-52) U/L Alkaline Phosphatase 59 (34-104) U/L Troponin I 0.00 (<0.04) ng/mL Total Protein 7.5 (6.4-8.9) g/dL Albumin 4.2 (3.2-5.2) g/dL Globulin 3.3 (2-4) g/dL Albumin/Globulin Ratio 1.3 (1-3) 05/07/19 Range/Units 14:25 WBC (3.5-10.8) 10^3/uL RBC (3.70-4.87) 10^6 /uL Hgb (12.0-16.0) g/dL Hct (35-47) % MCV (80-97) fL MCH (27-31) pg MCHC (31-36) g/dL RDW (10-15) % Plt Count (150-450) 10^3/uL MPV (7.4-10.4) fL Neut % (Auto) % Lymph % (Auto) % [place] % (Auto) % Eos % (Auto) % Baso % (Auto) % Absolute Neuts (auto) (1.5-7.7) 10^3/ul Absolute Lymphs (auto) (1.0-4.8) 10^3/ul Absolute Monos (auto) (0-0.8) 10^3/ul Absolute Eos (auto) (0-0.6) 10^3/ul Absolute Basos (auto) (0-0.2) 10^3/ul Absolute Nucleated RBC 10^3/ul Nucleated RBC % Polychromasia Hypochromasia Microcytosis Elliptocytes Hem Pathologist Commnt D-Dimer, Quantitative 209 (Less Than 230) ng/mL Sodium (135-145) mmol/L Potassium (3.5-5.0) mmol/L Chloride (101-111) mmol/L Carbon Dioxide (22-32) mmol/L Anion Gap (2-11) mmol/L BUN (6-24) mg/dL Creatinine (0.51-0.95) mg/dL Est GFR ( Amer) (>60) Est GFR (Non-Af Amer) (>60) BUN/Creatinine Ratio (8-20) Glucose (70-100) mg/dL Lactic Acid (0.5-2.0) mmol/L Calcium (8.6-10.3) mg/dL Total Bilirubin (0.2-1.0) mg/dL AST (13-39) U/L ALT (7-52) U/L Alkaline Phosphatase (34-104) U/L Troponin I (<0.04) ng/mL Total Protein (6.4-8.9) g/dL Albumin (3.2-5.2) g/dL Globulin (2-4) g/dL Albumin/Globulin Ratio (1-3) Assess/Plan/Problems-Billing Assessment: 38yof PMHx asthma, DM II, iron deficiency anemia, obesity presents with cough, SOB, wheeze. - Patient Problems (1) Asthma exacerbation Current Visit: Yes Status: Acute Code(s): J45.901 - UNSPECIFIED ASTHMA WITH (ACUTE) EXACERBATION SNOMED Code(s): 430690763 Comment: -Pt continues to have cough, SOB, wheeze; negative for leukocytosis, fever -Concern pt may have asthma as well as COPD- she is non-smoker, but has FHx COPD without smoker status -Likely that iron deficiency is contributing to SOB -Continue around the clock nebulizers -Continue prednisone; increasing dose to 50 -Continue peak flow q4h- slowly trending up to 180 (2) Hypertension Current Visit: Yes Status: Acute Code(s): I10 - ESSENTIAL (PRIMARY) HYPERTENSION SNOMED Code(s): 34798848 Comment: SBP 140's-170's -Continue lisinopril 10 (3) Iron deficiency anemia Current Visit: Yes Status: Acute Code(s): D50.9 - IRON DEFICIENCY ANEMIA, UNSPECIFIED SNOMED Code(s): 01855227 Comment: H/H stable -will repeat CBC in the AM -H/o fe deficiency anemia, labs show continued fe deficiency; worsening anemia -possible contributing factor to SOB -Continue ferrous sulfate -Continue to monitor- would recommend hematology f/u as outpt. - will check stool occult (4) Diabetes Current Visit: No Status: Acute Code(s): E11.9 - TYPE 2 DIABETES MELLITUS WITHOUT COMPLICATIONS SNOMED Code(s): 53339550 Comment: -HA1c 7.7 - continue metformin (5) Morbid obesity Current Visit: No Status: Acute Code(s): E66.01 - MORBID (SEVERE) OBESITY DUE TO EXCESS CALORIES SNOMED Code(s): 868055477 Comment: -BMI 50; noted (6) Enlarged thyroid Current Visit: Yes Status: Acute Code(s): E04.9 - NONTOXIC GOITER, UNSPECIFIED SNOMED Code(s): 8935445 Comment: - will add TSH to AM labs (7) DVT prophylaxis Current Visit: No Status: Acute Code(s): UJT5805 - SNOMED Code(s): 937390516 Comment: -SCDs (8) Full code status Current Visit: No Status: Acute Code(s): Z78.9 - OTHER SPECIFIED HEALTH STATUS SNOMED Code(s): 333590007 Status and Disposition: Observation. Discharge when stable. Patient continues to have SOB, cough, wheeze that is likely multifactorial due to asthma, iron deficiency anemia, and possible COPD. Continues with wheezing and SOB with exertion
[2019-05-10] MEDS: Mometasone 220 MCG MDI INH SCH (19:15)
[2019-05-11] MEDS: metFORMIN* 500 MG TAB PO SCH ×2 (00:01→12:28)
[2019-05-11] MEDS: Melatonin 3 MG TAB PO SCH (00:01)
[2019-05-11] MEDS: Albuterol/Ipratropium NEB.SOL* Albuterol 2.5 MG/Ipratropium 0.5 MG 3 ML INH SCH ×2 (01:00→07:16)
[2019-05-11 06:41] LABS: Hematocrit 29 % (35-47); Hemoglobin 8.8 g/dL (12.0-16.0); Mean Corpuscular HGB Conc 30 g/dL (31-36); Mean Corpuscular Hemoglobin 21 pg (27-31); Mean Corpuscular Volume 70 fL (80-97); Mean Platelet Volume 8.5 fL (7.4-10.4); Platelet Count 275 10^3/uL (150-450); Red Blood Count 4.17 10^6 /uL (3.70-4.87); Red Cell Distribution Width 19 % (10-15); White Blood Count 11.5 10^3/uL (3.5-10.8)
[2019-05-11 06:54] LABS: BUN/Creatinine Ratio 16.7 (8-20); EGFR African American 90.9 (>60); EGFR Non-African American 75.1 (>60); Potassium 3.6 mmol/L (3.5-5.0)
[2019-05-11 07:15] LABS: TSH (Thyroid Stimulating Horm) 15.82 mcIU/mL (0.34-5.60)
[2019-05-11] MEDS: Lisinopril TAB* 10 MG PO SCH (08:47)
[2019-05-11] MEDS: Fluticasone NASAL SPRAY 50MCG* 16 gm SPRAY BTL BOTH NARES SCH (08:48)
[2019-05-11] MEDS: Ferrous Sulfate TAB* 325 MG PO SCH (08:48)
[2019-05-11] MEDS: Docusate CAP* 100 MG PO SCH (08:48)
[2019-05-11] MEDS: predniSONE TAB* 50 MG PO SCH (08:48)
[2019-05-11 09:19] LABS: T4, Total 6.59 mcg/dL (6.09-12.23)
[2019-05-11 12:29] VITALS: BP 154/68
--- NOTE | 2019-05-11 18:10 | PN ---
Subjective Date of Service: 05/11/19 Interval History: patient reports that shortness of breath has improved , reports that abd pain is gone, Denies chest pain or shortness of breath at this time. Deneis abd pain n/v/d. Family History: Unchanged from Admission Social History: Unchanged from Admission Past Medical History: Unchanged from Admission Objective Vital Signs - 8 hr 05/11/19 05/11/19 05/11/19 11:17 11:30 12:29 Temperature 97.2 F 97.0 F Pulse Rate 77 95 Respiratory 20 19 Rate Blood Pressure 141/65 154/68 (mmHg) O2 Sat by Pulse 91 92 Oximetry Oxygen Devices in Use Now: None Appearance: alert, resting in bed, no acute distress Eyes: No Scleral Icterus Ears/Nose/Mouth/Throat: Clear Oropharnyx, Mucous Membranes Moist Neck: NL Appearance and Movements; NL JVP, Trachea Midline Respiratory: Symmetrical Chest Expansion and Respiratory Effort, Clear to Auscultation Cardiovascular: NL Sounds; No Murmurs; No JVD, No Edema Abdominal: NL Sounds; No Tenderness; No Distention Extremities: No Edema, No Clubbing, Cyanosis Skin: No Rash or Ulcers, No Nodules or Sclerosis Neurological: Alert and Oriented x 3 Nutrition: Taking PO's Result Diagrams: 05/11/19 06:30 05/11/19 06:30 Additional Lab and Data: Lab Results 05/07/19 05/07/19 05/07/19 Range/Units 13:11 13:11 13:11 WBC 7.4 (3.5-10.8) 10^3/uL RBC 4.39 (3.70-4.87) 10^6 /uL Hgb 9.3 L (12.0-16.0) g/dL Hct 30 L (35-47) % MCV 69 L (80-97) fL MCH 21 L (27-31) pg MCHC 31 (31-36) g/dL RDW 19 H (10-15) % Plt Count 227 (150-450) 10^3/uL MPV 9.3 (7.4-10.4) fL Neut % (Auto) 77.5 % Lymph % (Auto) 13.5 % [place] % (Auto) 6.0 % Eos % (Auto) 2.0 % Baso % (Auto) 1.0 % Absolute Neuts (auto) 5.7 (1.5-7.7) 10^3/ul Absolute Lymphs (auto) 1.0 (1.0-4.8) 10^3/ul Absolute Monos (auto) 0.4 (0-0.8) 10^3/ul Absolute Eos (auto) 0.1 (0-0.6) 10^3/ul Absolute Basos (auto) 0.1 (0-0.2) 10^3/ul Absolute Nucleated RBC 0.0 10^3/ul Nucleated RBC % 0.1 Polychromasia 1+ Hypochromasia 2+ Microcytosis 2+ Elliptocytes 1+ Hem Pathologist Commnt Pending D-Dimer, Quantitative (Less Than 230) ng/mL Sodium 140 (135-145) mmol/L Potassium 3.9 (3.5-5.0) mmol/L Chloride 104 (101-111) mmol/L Carbon Dioxide 29 (22-32) mmol/L Anion Gap 7 (2-11) mmol/L BUN 8 (6-24) mg/dL Creatinine 0.86 (0.51-0.95) mg/dL Est GFR ( Amer) 88.4 (>60) Est GFR (Non-Af Amer) 73.1 (>60) BUN/Creatinine Ratio 9.3 (8-20) Glucose 108 H (70-100) mg/dL Lactic Acid 0.8 (0.5-2.0) mmol/L Calcium 9.2 (8.6-10.3) mg/dL Total Bilirubin 0.40 (0.2-1.0) mg/dL AST 33 (13-39) U/L ALT 42 (7-52) U/L Alkaline Phosphatase 59 (34-104) U/L Troponin I 0.00 (<0.04) ng/mL Total Protein 7.5 (6.4-8.9) g/dL Albumin 4.2 (3.2-5.2) g/dL Globulin 3.3 (2-4) g/dL Albumin/Globulin Ratio 1.3 (1-3) /05/20 Range/Units 14:25 WBC (3.5-10.8) 10^3/uL RBC (3.70-4.87) 10^6 /uL Hgb (12.0-16.0) g/dL Hct (35-47) % MCV (80-97) fL MCH (27-31) pg MCHC (31-36) g/dL RDW (10-15) % Plt Count (150-450) 10^3/uL MPV (7.4-10.4) fL Neut % (Auto) % Lymph % (Auto) % [place] % (Auto) % Eos % (Auto) % Baso % (Auto) % Absolute Neuts (auto) (1.5-7.7) 10^3/ul Absolute Lymphs (auto) (1.0-4.8) 10^3/ul Absolute Monos (auto) (0-0.8) 10^3/ul Absolute Eos (auto) (0-0.6) 10^3/ul Absolute Basos (auto) (0-0.2) 10^3/ul Absolute Nucleated RBC 10^3/ul Nucleated RBC % Polychromasia Hypochromasia Microcytosis Elliptocytes Hem Pathologist Commnt D-Dimer, Quantitative 209 (Less Than 230) ng/mL Sodium (135-145) mmol/L Potassium (3.5-5.0) mmol/L Chloride (101-111) mmol/L Carbon Dioxide (22-32) mmol/L Anion Gap (2-11) mmol/L BUN (6-24) mg/dL Creatinine (0.51-0.95) mg/dL Est GFR ( Amer) (>60) Est GFR (Non-Af Amer) (>60) BUN/Creatinine Ratio (8-20) Glucose (70-100) mg/dL Lactic Acid (0.5-2.0) mmol/L Calcium (8.6-10.3) mg/dL Total Bilirubin (0.2-1.0) mg/dL AST (13-39) U/L ALT (7-52) U/L Alkaline Phosphatase (34-104) U/L Troponin I (<0.04) ng/mL Total Protein (6.4-8.9) g/dL Albumin (3.2-5.2) g/dL Globulin (2-4) g/dL Albumin/Globulin Ratio (1-3) Microbiology and Other Data: Microbiology 05/10/19 16:18 Stool Occult Blood ([place]) - Final Stool Assess/Plan/Problems-Billing Assessment: 38yof PMHx asthma, DM II, iron deficiency anemia, obesity presents with cough, SOB, wheeze. - Patient Problems (1) Asthma exacerbation Status: Acute Code(s): J45.901 - UNSPECIFIED ASTHMA WITH (ACUTE) EXACERBATION SNOMED Code(s): 676073551 Comment: -remain afebrile, mild elevation in WBC's likely d/t prednisone -Likely that iron deficiency could be contributing to SOB -Continue nebulizers, inhalers -Continue prednisone; will discharged with taper (2) Hypertension Status: Acute Code(s): I10 - ESSENTIAL (PRIMARY) HYPERTENSION SNOMED Code(s) : 40915988 Comment: SBP improving -Continue lisinopril 10 (3) Iron deficiency anemia Status: Acute Code(s): D50.9 - IRON DEFICIENCY ANEMIA, UNSPECIFIED SNOMED Code(s): 07525530 Comment: H/H stable 8.8/29 -H/o fe deficiency anemia, labs show continued fe deficiency; worsening anemia -possible contributing factor to SOB -Continue ferrous sulfate - will send script for home -Continue to monitor- would recommend hematology f/u as outpt. - will check stool occult (4) Diabetes Status: Acute Code(s): E11.9 - TYPE 2 DIABETES MELLITUS WITHOUT COMPLICATIONS SNOMED Code(s): 28706730 Comment: -HA1c 7.7 - continue metformin (5) Morbid obesity Status: Acute Code(s): E66.01 - MORBID (SEVERE) OBESITY DUE TO EXCESS CALORIES SNOMED Code(s): 970680923 Comment: -BMI 50; noted (6) Enlarged thyroid Status: Acute Code(s): E04.9 - NONTOXIC GOITER, UNSPECIFIED SNOMED Code(s): 5585192 Comment: - will add TSH 15.89 - will start levothyroxine 25 mg po daily (7) DVT prophylaxis Status: Acute Code(s): MBN0934 - SNOMED Code(s): 989156396 Comment: -SCDs (8) Full code status Status: Acute Code(s): Z78.9 - OTHER SPECIFIED HEALTH STATUS SNOMED Code(s) : 614359977 (9) Pulmonary nodules Status: Acute Code(s): R91.8 - OTHER NONSPECIFIC ABNORMAL FINDING OF LUNG FIELD SNOMED Code(s): 245033148 Comment: CT showed Plmonary nodules - likely infectious vs inflamatory - likely this is inflammatory from asthma exacerbation - patient is afebrile and with o initial elevation in wbc until after starting steroids - recommend pulmonary follow up as outpt - Status and Disposition: discharge home
--- NOTE | 2019-05-11 22:16 | DS ---
CC: Dr. Aguilar * DISCHARGE SUMMARY: DATE OF ADMISSION: 05/07/19 DATE OF DISCHARGE: 05/11/19 PROVIDER: Sharon Montenegro NP ATTENDING PHYSICIAN WHILE IN THE HOSPITAL: Dr. Varun Ferreira * (dictated by Sharon Montenegro NP). PRIMARY CARE PROVIDER: Dr. Aguilar. PRIMARY DIAGNOSES: 1. Asthma exacerbation. 2. Lung nodules. 3. Enlarged thyroid, hypothyroid. 4. Anemia. 5. Hypertension. SECONDARY DIAGNOSES: 1. Obesity. 2. Anemia. 3. Diabetes. STUDIES COMPLETED WHILE IN THE HOSPITAL: She had a chest x-ray on 05/07/19, radiologist's impression: No active cardiopulmonary disease. She had a CTA of the chest, radiologist's impression: 1. No evidence of pulmonary embolus. 2. Cluster of ill-defined right lower lobe nodules, likely infectious or inflammatory. 3. Borderline enlarged mediastinal lymph node. 4. Thyromegaly. DISCHARGE MEDICATIONS: New home medications: 1. Albuterol HFA inhaler 2 puffs q.6 hours as needed for shortness of breath. 2. Albuterol nebulizer 2.5 mg per 3 mL 1 neb q.6 hours as needed for shortness of breath and wheezing. 3. Ferrous sulfate 325 mg p.o. daily. 4. Fluticasone nasal spray 2 sprays daily. 5. Levothyroxine 25 mcg p.o. daily. 6. Lisinopril 10 mg p.o. daily. 7. Asmanex 220 mcg 2 puffs inhaled every night. 8. Prednisone taper 40 mg x2 days and then 30 mg x2 days, and then 20 mg x2 days, and then 10 mg x2 days, and then discontinue. Continued home medication: Metformin 1000 mg p.o. b.i.d. HISTORY OF PRESENT ILLNESS AND HOSPITAL COURSE: Ms. Fuentes is a 38-year-old female with past medical history significant for asthma and diabetes who presented to the emergency room with a complaint of shortness of breath since 8 o'clock in the morning and a consistent cough for 2 days. The patient reports that she tried her Ventolin inhaler at home with no improvement of her symptoms. On admission to the emergency room, she did report a fever at home, dry mouth, and rhinorrhea since the morning. She denied any other symptoms. The patient was admitted for asthma exacerbation. She did have a CT of the chest again that showed no pulmonary embolism but did show pulmonary nodules in the right lower lobe, suspected to be infectious versus inflammatory. The patient did not have a white count, she was afebrile throughout her hospitalization. Her symptoms did improve with the use of steroids and nebulizers. Her wheezing resolved with the addition of corticosteroid inhaler. The CT also showed a diffusely enlarged thyroid. She did have a TSH that was checked. Her TSH was elevated at 15, so she was diagnosed with hypothyroidism. Her free T3 and T4 were within normal limits. The patient also was anemic during this hospitalization. She is slightly lower than her baseline with no reports of gastrointestinal or heavy vaginal bleeding. She reports her last period approximately 1 week ago was light. She does report that she has a 3 months' cycle of light period, then a medium period, then a heavy period every 3 months but denies any black or tarry stools. She did have stool for occult that was negative. At this time, the patient is stable for discharge home. Vital signs are as follows: Temperature was 97.0, heart rate 77, respirations 20, O2 saturation 92 % on room air, blood pressure was 141/65. DISCHARGE PLAN: At this time, Ms. Fuentes will be discharged back home. Activity as tolerated. She should continue on a consistent carb diet. 1. Asthma exacerbation. The patient should continue prednisone taper as prescribed 40 mg x2 days, then 30 mg x2 days, and then 20 x2 days, and then 10 mg x2 days. She should continue Asmanex inhaler daily and then albuterol inhaler and nebulizer as needed for shortness of breath. She should follow up with Dr. Aguilar in 4 to 7 days. I would recommend followup with Pulmonology due to pulmonary nodules in the right lower lobe as this should be followed closely until resolution as this is most likely related to inflammatory process. 2. Diabetes. She should continue on metformin as previously prescribed. 3. Hypertension. The patient was hypertensive during this hospitalization. She was started on lisinopril. She will be given a prescription for lisinopril 10 mg p.o. daily. Her blood pressure ranged from 133 to 189/55 to 107. The patient's blood pressure did improve after the initiation of lisinopril. 4. Anemia. The patient does have a history of chronic iron deficiency anemia. Her iron was low during this hospitalization. She did receive an iron infusion. I would recommend that the patient be referred to Hematology/ Oncology for further workup of her chronic iron deficiency anemia. I have started the patient on iron 325 mg p.o. daily. She should follow up with her primary care provider for further recommendations of her chronic anemia and further management. 5. Hypothyroid. The patient did have a diffusely enlarged thyroid on CT scan. She did have a TSH of 15.82. I started her on levothyroxine 25 mcg p.o. daily. She should get a repeat TSH in 4 to 6 weeks. She will follow up with her primary care provider for further dosing and recommendations. The patient was instructed to follow up with her primary care provider in 4 to 7 days. She should return to the emergency room for any chest pain, shortness of breath , worsening of her symptoms, rectal or vomiting of blood or coffee-ground emesis or any other concerning symptoms. CONDITION AT DISCHARGE: Stable. DISPOSITION AT DISCHARGE: Home. I have discussed this with my attending Dr. Rodrigo Ferreira, he is in agreement with my plan. SHARON MONTENEGRO, MYAH [id number]/[facility] #: [id number] VERONICA
== END 2019-05-11 13:15 | disposition home or self-care (01) | DRG 141 ==
LOC: ED 11:46 → INTOOBSV 21:47 → MED 21:47 → MERGE 21:47 → OBSVTOIN 05-09 19:00
PROVIDERS: ADMIT Internal Medicine; ATTEND Internal Medicine
DX: J45.901 Unspecified asthma with (acute) exacerbation (principal); Z68.43 Body mass index [BMI] 50.0-59.9, adult; E66.01 Morbid (severe) obesity due to excess calories; E11.9 Type 2 diabetes mellitus without complications; I10 Essential (primary) hypertension; D50.9 Iron deficiency anemia, unspecified; R91.8 Other nonspecific abnormal finding of lung field; J06.9 Acute upper respiratory infection, unspecified; E03.9 Hypothyroidism, unspecified; G47.00 Insomnia, unspecified; Z79.84 Long term (current) use of oral hypoglycemic drugs; Z79.51 Long term (current) use of inhaled steroids; Z82.5 Family history of asthma and other chronic lower respiratory diseases; Z81.2 Family history of tobacco abuse and dependence; Z82.49 Family history of ischemic heart disease and other diseases of the circulatory system; Z80.1 Family history of malignant neoplasm of trachea, bronchus and lung
CPT/HCPCS: 36415; 71046; 71275; 80048; 80053; 82103; 82104; 82272; 82728; 83036; 83540; 83550; 83605; 84436; 84443; 84481; 84484; 85025; 85027; 85060; 85379; 94640; 99284; A9270-GY; G0378; J0360; J0456; J0696; J1100; J2916; J3475; J7512; Q9967

== ENCOUNTER 2019-12-21 17:31 | Observation (INO) | payer OTHER ==
[2019-12-21] MEDS ORDERED: NS 0.9% 1000 ML** 2,000 ML IV ONE (17:41)
--- NOTE | 2019-12-21 17:48 | ED ---
HPI Diabetic - HPI Summary HPI Summary: 39 year old patient presents to the ED with a chief complaint of feeling unwell for several days, secondary to her DM type 2. Patient reports excessive urination, dehydration, heavy vaginal bleeding, and 3/10 suprapubic pain for the past several days. Patient has lost 20 pounds in 23 days. She also claims that her last period lasted for several weeks. PMHx of HTN, hypothyroidism, chronic anemia, and asthma. Family history of HTN. Patient is medication compliant. She formerly smoked tobacco. - History Of Current Complaint Chief Complaint: EDDiabeticProb Time Seen by Provider: 12/21/19 17:41 Hx Obtained From: Patient Hx Last Menstrual Period: 10/25/16 Onset/Duration: Gradual Onset, Lasting Days Timing: Constant Severity Initially: Mild Severity Currently: Mild Character: Alert Aggravating: Nothing Associated Signs & Symptoms: Abdominal Pain - suprapubic, Polydipsia, Polyuria Related History: Compliant, DM II - Allergies/Home Medications Allergies/Adverse Reactions: Allergies Allergy/AdvReac Type Severity Reaction Status Date / Time No Known Allergies Allergy Verified 12/21/19 17:39 Home Medications: Home Medications Levothyroxine TAB* [Synthroid TAB*] 100 mcg PO DAILY 12/21/19 [History Confirmed 12/21/19] Lisinopril TAB* [Prinivil TAB*] 20 mg PO DAILY 12/21/19 [History Confirmed 12/21] metFORMIN* [Glucophage 500 MG TAB *] 1,000 mg PO BID 12/21/19 [History Confirmed 12/21/19] PMH/Surg Hx/FS Hx/Imm Hx Endocrine/Hematology History: Reports: Hx Diabetes - , Hx Anemia - Iron deficiency anemia Cardiovascular History: Denies: Hx Hypertension Respiratory History: Reports: Hx Asthma - EXERCISE-INDUCED Denies: Hx Chronic Obstructive Pulmonary Disease (COPD), Other Respiratory Problems/Disorders Sensory History: Denies: Hx Contacts or Glasses, Hx Deafness, Hx Hearing Aid, Hx Hearing Problem Opthamlomology History: Denies: Hx Contacts or Glasses - Surgical History Surgery Procedure, Year, and Place: TOE REMOVED FROM BILAT FEET A BABY Infectious Disease History: No Infectious Disease History: Denies: Traveled Outside the [place] in Last 30 Days - Family History Known Family History: Positive: Cardiac Disease - father had CHF, Hypertension, Respiratory Disease - mother had mild COPD and asthma - Social History Alcohol Use: Rare Hx Substance Use: No Substance Use Type: Reports: None Hx Tobacco Use: No Smoking Status (MU): Former Smoker Have You Smoked in the Last Year: No Review of Systems Positive: Other - dehydration Positive: Abdominal Pain Positive: discharge - heavy bleeding with clotting, frequency, urgency All Other Systems Reviewed And Are Negative: Yes Physical Exam - Summary Physical Exam Summary: VITAL SIGNS: Reviewed. GENERAL: Patient is an obese female who is lying comfortable in the stretcher. Patient is not in any acute respiratory distress. HEAD AND FACE: No signs of trauma. No ecchymosis, hematomas or skull depressions. No sinus tenderness. EYES: PERRLA, EOMI x 2, No injected conjunctiva, no nystagmus. EARS: Hearing grossly intact. Ear canals and tympanic membranes are within normal limits. MOUTH: Dry oral mucosa. NECK: Supple, trachea is midline, no adenopathy, no JVD, no carotid bruit, no c- spine tenderness, neck with full ROM. CHEST: Symmetric, no tenderness at palpation. LUNGS: Clear to auscultation bilaterally. No wheezing or crackles. CVS: Regular rate and rhythm, S1 and S2 present, no murmurs or gallops appreciated. ABDOMEN: Soft, non-tender. No signs of distention. No rebound, no guarding, and no masses palpated. Bowel sounds are normal. EXTREMITIES: FROM in all major joints, no edema, no cyanosis or clubbing. NEURO: Alert and oriented x 3. No acute neurological deficits. Speech is normal and follows commands. SKIN: Dry and warm. Triage Information Reviewed: Yes Vital Signs On Initial Exam: Initial Vitals Temp Pulse Resp BP Pulse Ox 97.4 F 107 19 203/119 97 12/21/19 17:33 12/21/19 17:33 12/21/19 17:33 12/21/19 17:33 12/21/19 17:33 Vital Signs Reviewed: Yes Diagnostics - Vital Signs Vital Signs Temp Pulse Resp BP Pulse Ox 12/21/19 17:33 97.4 F 107 19 203/119 97 - Laboratory Result Diagrams: 12/21/19 17:56 12/21/19 17:56 Lab Statement: Any lab studies that have been ordered have been reviewed, and results considered in the medical decision making process. Diabetic Course/Dx - Course Assessment/Plan: 39 year old patient presents to the ED with a chief complaint of feeling unwell for several days, secondary to her DM type 2. Patient reports excessive urination, dehydration, heavy vaginal bleeding, and 3/10 suprapubic pain for the past several days. Patient has lost 20 pounds in 23 days. She also claims that her last period lasted for several weeks. PMHx of HTN, hypothyroidism, chronic anemia, and asthma. Family history of HTN. Patient is medication compliant. She formerly smoked tobacco. Blood work w/o a significant abnormality except for Na 133, Cl 96, CO2 26, creatinine 103, glucose 588, crp 11.52. Urinalysis contaminated. In the ED course the patient was given IV fluids, and insulin for hyperglycemia. The patient is not in DKA. After the patient was given 12 units of insulin the fingerstick is 351. The patient is a poorly controlled diabetic who is only taking metformin. I believe that the patient would benefit from more hydration and insulin. I also believe the patient would benefit from admission due to her uncontrolled diabetes. I discuss my physical exam and test results with Dr. Gage from the hospitalist services and she agrees to admit the patient to her services. The patient is hemodynamically stable alert and oriented x 3. - Diagnoses Differential Dx: Diabetic Ketoacidosis, Hyperglycemia Provider Diagnoses: Uncontrolled diabetes mellitus, Hyperglycemia - Physician Notifications Discussed Care Of Patient With: Rajednra Gage - Hospitalist Time Discussed With Above Provider: 21:19 Instructed by Provider To: Admit As Observation - I spoke to Dr. Gage, hospitalist, who admits the patient for observation. Admit/Transition Orders Completed By ED Provider: Yes Discharge ED - Sign-Out/Discharge Documenting (check all that apply): Patient Departure - admit - Discharge Plan Condition: Stable Disposition: ADMITTED TO [facility] Referrals: Chago Aguilar MD [Primary Care Provider] - - Billing Disposition and Condition Condition: STABLE Disposition: Admitted to [facility] - Attestation Statements Document Initiated by Scribe: Yes Documenting Scribe: Kai Sanchez Provider For Whom Scribe is Documenting (Include Credential): Dell Villalba MD Scribe Attestation: IKai, scribed for Dell Villalba MD on 12/21/19 at 2151. Scribe Documentation Reviewed: Yes Provider Attestation: The documentation as recorded by the scribe, Kai Sanchez accurately reflects the service I personally performed and the decisions made by me, Dell Villalba MD Status of Scribe Document: Viewed
[2019-12-21 18:07] LABS: ABS Basophils 0.1 10^3/ul (0-0.2); ABS Eosinophils 0.1 10^3/ul (0-0.6); ABS Lymphocytes 1.7 10^3/ul (1.0-4.8); ABS Monocytes 0.3 10^3/ul (0-0.8); Hematocrit 42 % (35-47); Hemoglobin 13.9 g/dL (12.0-16.0); Lymphocyte % 23.4 %; Mean Corpuscular HGB Conc 33 g/dL (31-36); Mean Corpuscular Hemoglobin 31 pg (27-31); Mean Corpuscular Volume 92 fL (80-97); Mean Platelet Volume 12.3 fL (7.4-10.4); Nucleated Red Blood Cells % 0.1; Platelet Count 162 10^3/uL (150-450); Red Blood Count 4.55 10^6 /uL (3.70-4.87); Red Cell Distribution Width 14 % (10-15); White Blood Count 7.1 10^3/uL (3.5-10.8)
[2019-12-21 18:23] LABS: Albumin 4.2 g/dL (3.2-5.2); Albumin/Globulin Ratio 1.5 (1-3); BUN/Creatinine Ratio 14.6 (8-20); C Reactive Protein 11.52 mg/L (<8.01); EGFR African American 71.5 (>60); EGFR Non-African American 59.1 (>60); Globulin 2.8 g/dL (2-4); Total Bilirubin 0.5 mg/dL (0.2-1.0)
[2019-12-21 18:48] LABS: Urine Appearance Cloudy; Urine Bilirubin Negative (Negative); Urine Blood 3+ (Negative); Urine Color Yellow; Urine Glucose 3+(>=500 mg/dL) (Negative); Urine Ketones 1+ (Negative); Urine Nitrite Negative (Negative); Urine Protein Negative (Negative); Urine Specific Gravity 1.029 (1.010-1.030); Urine Urobilinogen Negative (Negative)
[2019-12-21 18:53] LABS: Urine Bacteria Absent (Absent); Urine Red Blood Cell 3+(>10/hpf) (Absent); Urine Squamous Epithelial Cell Present (Absent); Urine White Blood Cell 3+(>20/hpf) (Absent)
[2019-12-21] MEDS ORDERED: Insulin REGULAR(*) 1 UNITS UNIT IV PUSH ONE ×2 (18:54→21:13)
[2019-12-21 19:40] LABS: Potassium 4.4 mmol/L (3.5-5.0)
[2019-12-21] MEDS ORDERED: Ibuprofen TAB* 600 MG PO ONE (20:36)
[2019-12-21] MEDS ORDERED: Albuterol HFA INHALER* 8 gm MDI INH PRN (23:05)
[2019-12-21] MEDS ORDERED: Dextrose 50% Syringe 50 ML* 25 GM/50 ML SYRINGE IV PUSH PRN (23:06)
[2019-12-21] MEDS ORDERED: NS 0.9% 1000 ML** 1,000 ML IV SCH (23:15)
[2019-12-21] MEDS ORDERED: Lisinopril TAB* 10 MG PO ONE (23:27)
--- NOTE | 2019-12-22 00:41 | HP ---
CC: Dr. Chago Aguilar * HISTORY AND PHYSICAL: DATE OF ADMISSION: 12/21/19 PRIMARY CARE PROVIDER: Dr. Chago Aguilar. CHIEF COMPLAINT: Diabetic symptoms. HISTORY OF PRESENT ILLNESS: This is a 39-year-old female with past medical history of diabetes, managed on metformin 1000 mg b.i.d. for the past several years, who comes to the emergency room because of feeling unwell and having diabetic symptoms. The patient reports that she has been having increased urination, increased thirst, and has lost about 20 pounds in 23 days. The patient went to her primary care provider today, and patient reports that she did not feel that her concerns were addressed by the primary care provider, so the patient came to the emergency room for further evaluation and care. The patient reports that she has a good appetite but continues to lose weight. She thinks that it is because she is having lots of urination and she is also having increased thirst. The patient has also been reporting heavy vaginal bleeding with blood clots for the past several days with some menstrual cramp type symptoms as well. In the emergency room, the patient was seen and evaluated, was found to have hyperglycemia, was started on IV fluids as well as given IV insulin. Subsequently, the hospitalist service was called for admission to the hospital for hyperglycemia. PAST MEDICAL HISTORY: 1. Diabetes. 2. Anemia. 3. Asthma. 4. Hypothyroidism. PAST SURGICAL HISTORY: The patient had polydactyly and is status post surgical removal of the 6th toe at bilateral feet as well as hand bilaterally, finger removed on the 6th one as a child. MEDICATIONS: Home medications include: 1. Levothyroxine 100 mcg daily. 2. Albuterol inhaler 2 puffs inhaled every 6 hours as needed. 3. Glucophage 1000 mg b.i.d. 4. Lisinopril 20 mg daily. ALLERGIES: No known drug allergies. FAMILY HISTORY: Mother: Had a recent Whipple surgery due to bile duct cancer, asthma. Father: Heart issues and developed lung cancer due to smoking. SOCIAL HISTORY: The patient lives at home. Her mother is living with her currently whom she takes care of. She does not smoke. She will drink alcohol when she is out with friends for dinnertime. REVIEW OF SYSTEMS: She does not have any fever or chills, however, has lost about 20 pounds in 23 days, is having polyuria, polydipsia. She does not have any changes in her vision or hearing, no blurry vision, no sore throat, no trouble swallowing, no chest pain, no shortness of breath, no palpitations, no cough. She is having some nausea, however, no vomiting, no abdominal pain. She is having menstrual cramps with heavy vaginal bleeding. No dysuria but is having increased urination. No suprapubic pain, no flank pain, no headaches, no focal weakness or numbness. Mood is unchanged. No thoughts of hurting herself or anyone else. PHYSICAL EXAMINATION GENERAL: This is an obese female, well developed, well nourished, lying in in an ER stretcher, in no acute distress. VITAL SIGNS: Blood pressure 173/105, heart rate of 104, respiratory rate of 17 , saturation of 95% on room air, temperature of 97.6 Fahrenheit. HEENT: Pupils are equal, round, and reactive to light, atraumatic, normocephalic. Oral mucosa is dry. There is no nystagmus. LUNGS: There is no tachypnea, no use of accessory muscles. Lungs are clear without any wheezing, rales, or rhonchi. HEART: There is no chest wall tenderness, regular, tachycardia, with 2/6 systolic murmur best heard at the right upper sternal border. There are no rubs or gallops. ABDOMEN: Normoactive bowel sounds. Abdomen is soft, nontender, nondistended. EXTREMITIES: No lower extremity edema, no calf tenderness. Radial pulses 2+ bilaterally. NEUROLOGIC: The patient is awake, alert, and oriented x3. Tongue is midline. There is no facial droop, symmetric smile. She is moving all 4 extremities without any focal neurological deficits. SKIN: No rashes or lesions. There is poor skin turgor. DIAGNOSTIC STUDIES/LAB DATA: WBC 7.1, hemoglobin 13.9, hematocrit 42, MCV 92, platelets of 162. ABG shows pH of 7.40, pCO2 of 39, pO2 of 86. Sodium 133; potassium 4.4; chloride 96; BUN of 15; creatinine of 1.03; glucose initially was 588, down to 351 now. AST of 91, ALT of 168, CRP of 11.52. Urinalysis shows 1+ ketone, 3+ blood, 3+ wbc, 3+ rbc, 3+ glucose, negative for bacteria. IMPRESSION AND PLAN: 1. Hyperglycemia with type 2 diabetes: Continue patient's metformin. I will check her hemoglobin A1c. The patient reports that she had an A1c checked in November 2019, which shows hemoglobin A1c of 6.6; however, her blood sugar is significantly elevated. Continue metformin. Consider starting the patient on Invokana as this would help her with better control of her diabetes and recent studies have suggested that is a preferred drug after starting metformin. 2. Hypertension with accelerated hypertension: We will give one dose of lisinopril now and resume home dose to starting tomorrow morning. 3. History of hypothyroidism: Continue levothyroxine. 4. Asthma: Controlled. 5. Heavy vaginal bleeding with clots: The patient would benefit from an outpatient ROTO ROOTER OPERATOR consult as the patient seems to be having menometrorrhagia. She may have uterine fibroid that may need further workup and care. 6. DVT prophylaxis with ambulation and sequential compression device when in bed. [id number]/[facility] #: [id number] MTDD
[2019-12-22] MEDS: Insulin LISPRO* 1 UNITS UNIT SUBCUT SCH ×5 (01:42→22:00)
[2019-12-22] MEDS: Levothyroxine TAB* 100 MCG TAB PO SCH (05:52)
[2019-12-22] MEDS ORDERED: Acetaminophen TAB* 325 MG PO PRN (05:56)
[2019-12-22] MEDS ORDERED: Ondansetron INJ* 2 MG/ML VIAL IV PRN (05:56)
[2019-12-22 05:58] LABS: BUN/Creatinine Ratio 15.2 (8-20); EGFR African American 69.9 (>60); EGFR Non-African American 57.8 (>60); Magnesium 1.5 mg/dL (1.9-2.7); Phosphorus 4.5 mg/dL (2.5-5.0); Potassium 3.9 mmol/L (3.5-5.0)
[2019-12-22] MEDS ORDERED: Magnesium Sulfate IV* 3 GM in NS 0.9% 100 ML* 100 ML IVPB ONE (08:40)
[2019-12-22] MEDS: Lisinopril TAB* 10 MG PO SCH (08:50)
[2019-12-22] MEDS ORDERED: metFORMIN* 500 MG TAB PO SCH ×2 (09:00→21:00)
[2019-12-22] MEDS: Insulin LISPRO* 1 UNITS UNIT SUBCUT ONE ×2 (12:51→12:54)
--- NOTE | 2019-12-22 13:14 | PN ---
Subjective Date of Service: 12/22/19 Interval History: Patient is alert, sitting on the edge of the bed, no acute distress. Denies chest pain or shortness of breath. Denies abd pain n/v/d. Denies fever or chills. reports that vaginal bleeding is improving Blood sugars reviewed: Consistently above 350- Family History: Unchanged from Admission Social History: Unchanged from Admission Past Medical History: Unchanged from Admission Objective Active Medications: Acetaminophen (Tylenol Tab*) 650 mg PO Q6H PRN PRN Reason: MILD PAIN or TEMP > 100.4 Last Admin: 12/22/19 06:22 Dose: 650 mg Albuterol (Ventolin Hfa Inhaler*) 2 puff INH Q6H PRN PRN Reason: SHORTNESS OF BREATH Dextrose (D50w Syringe 50 Ml*) 12.5 gm IV PUSH .FOR FS < 60 - SS PRN PRN Reason: FS < 60 Sodium Chloride (Ns 0.9% 1000 Ml) 1,000 mls @ 75 mls/hr IV PER RATE [facility] Last Admin: 12/22/19 01:24 Dose: 75 mls/hr Insulin Human Lispro (Humalog*) 0 units SUBCUT [facility]; Protocol Last Admin: 12/22/19 12:52 Dose: 15 units Levothyroxine Sodium (Synthroid Tab*) 100 mcg PO DAILY@0600 [facility] Last Admin: 12/22/19 05:52 Dose: 100 mcg Lisinopril (Prinivil Tab*) 20 mg PO DAILY [facility] Last Admin: 12/22/19 08:50 Dose: 20 mg Metformin HCl (Glucophage*) 1,000 mg PO BID [facility] Last Admin: 12/22/19 08:50 Dose: 1,000 mg Ondansetron HCl (Zofran Inj*) 4 mg IV Q6H PRN PRN Reason: NAUSEA Vital Signs - 8 hr 12/22/19 12/22/19 07:15 08:00 Temperature 97.6 F Pulse Rate 91 Respiratory 16 16 Rate Blood Pressure 142/68 (mmHg) O2 Sat by Pulse 100 Oximetry Oxygen Devices in Use Now: None Appearance: obese, alert and oriented x 3 , no acute distress Eyes: No Scleral Icterus Ears/Nose/Mouth/Throat: Clear Oropharnyx, Mucous Membranes Moist Neck: NL Appearance and Movements; NL JVP, Trachea Midline Respiratory: Symmetrical Chest Expansion and Respiratory Effort, Clear to Auscultation Cardiovascular: NL Sounds; No Murmurs; No JVD, No Edema Abdominal: NL Sounds; No Tenderness; No Distention Extremities: No Edema, No Clubbing, Cyanosis Skin: No Rash or Ulcers Neurological: Alert and Oriented x 3 Nutrition: Taking PO's Result Diagrams: 12/21/19 17:56 12/22/19 05:32 Assess/Plan/Problems-Billing Assessment: Ms. Fuentes is a 39 y.o female with a pmhx of DM, asthma, hypothyroid who presented to the ER with increased thirst and hyperglycemia - Patient Problems (1) Hyperglycemia due to type 2 diabetes mellitus Current Visit: Yes Status: Acute Code(s): E11.65 - TYPE 2 DIABETES MELLITUS WITH HYPERGLYCEMIA SNOMED Code(s): 129805769314781 Comment: blood sugars remain elevated - will continue lispro ss - continue metformin - consult to Dr. Pichardo- pending - will adjust insulin and diabetes meds based on recommendtions - A1C 11.2 (2) Hypertension Current Visit: No Status: Acute Code(s): I10 - ESSENTIAL (PRIMARY) HYPERTENSION SNOMED Code(s): 93921484 Comment: SBP improving -Continue lisinopril 10 (3) Hypothyroid Current Visit: Yes Status: Acute Code(s): E03.9 - HYPOTHYROIDISM, UNSPECIFIED SNOMED Code(s): 18021702 Comment: continue levothyroxine 100 mcg daily (4) DVT prophylaxis Current Visit: No Status: Acute Code(s): GIP5540 - SNOMED Code(s): 138434205 Comment: -SCDs (5) Full code status Current Visit: No Status: Acute Code(s): Z78.9 - OTHER SPECIFIED HEALTH STATUS SNOMED Code(s): 266870408
--- NOTE | 2019-12-22 16:59 | CONSULT ---
Consult Consult: [facility] Inpatient Consult Note Date of Consult: 12/22/19 Reason for Consult: type 2 diabetes Reason for Admission: hyperglycemia ASSESSMENT: 39 yo F with history of severe, obesity-related T2DM, now admitted for symptomatic hyperglycemia. This is her second episode of unprovoked, symptomatic hyperglycemia requiring hospitalization since 2015. She has been able to maintain A1c <8% with metformin alone since 2018, so I suspect that she is experiencing acute hyperglycemia caused by lifestyle factors. History of weight loss and mild DKA is concerning for [id number] insulin deficiency. I recommend the following changes to her diabetes regimen. Due to history of severe hyperglycemia, she will require lifelong basal insulin therapy. PLAN: - start insulin glargine 30 units QHS and continue at discharge - change insulin lispro 10 units with meals plus sliding scale (inpatient only) - start glipizide XL 5mg daily as outpatient - change to metformin ER 1500mg QHS - reduced carbohydrate diet was encouraged - follow-up with endocrine in 2-3 weeks - call [phone] with questions SUBJECTIVE: History of Present Illness: 39 yo F with history obesity, T2DM and hypothyroidism, now admitted for hyperglycemia, malaisea and weight loss. See admission note for details. Briefly, she was diagnosed with T2DM in November 2016 during an admission for LRTI. She was started on metformin at that time and was able to maintain adequate glycemic control until April 2018, when she was admitted for acute hyperglycemia with mild DKA. She briefly used insulin around that time, but went back to metformin only and has been able to maintain A1c 6.2 -7.7% through October 2019. She has been followed by PCP (Lauren) during this time and was recently started on levothyroxine for hypothyroidism. She tells me that she has been under a lot of stress lately with life-threatening cancer diagnoses in her mother and best friend. Past Medical History: - T2DM - hypothyroidism - HTN - asthma - history of anemia Medications Prior to Admission: Albuterol HFA INHALER* [Ventolin HFA Inhaler*] 2 puff INH Q6H PRN #1 mdi [Rx Confirmed 12/21/19] Levothyroxine TAB* [Synthroid TAB*] 100 mcg PO DAILY 12/21/19 [History Confirmed 12/21/19] Lisinopril TAB* [Prinivil TAB*] 20 mg PO DAILY 12/21/19 [History Confirmed 12/21] metFORMIN* [Glucophage 500 MG TAB *] 1,000 mg PO BID 12/21/19 [History Confirmed 12/21/19] Inpatient Medications: Acetaminophen (Tylenol Tab*) 650 mg PO Q6H PRN PRN Reason: MILD PAIN or TEMP > 100.4 Last Admin: 12/22/19 06:22 Dose: 650 mg Albuterol (Ventolin Hfa Inhaler*) 2 puff INH Q6H PRN PRN Reason: SHORTNESS OF BREATH Dextrose (D50w Syringe 50 Ml*) 12.5 gm IV PUSH .FOR FS < 60 - SS PRN PRN Reason: FS < 60 Sodium Chloride (Ns 0.9% 1000 Ml) 1,000 mls @ 75 mls/hr IV PER RATE [facility] Last Admin: 12/22/19 01:24 Dose: 75 mls/hr Insulin Human Lispro (Humalog*) 0 units SUBCUT [facility]; Protocol Last Admin: 12/22/19 12:52 Dose: 15 units Levothyroxine Sodium (Synthroid Tab*) 100 mcg PO DAILY@0600 [facility] Last Admin: 12/22/19 05:52 Dose: 100 mcg Lisinopril (Prinivil Tab*) 20 mg PO DAILY [facility] Last Admin: 12/22/19 08:50 Dose: 20 mg Metformin HCl (Glucophage*) 1,000 mg PO BID [facility] Last Admin: 12/22/19 08:50 Dose: 1,000 mg Ondansetron HCl (Zofran Inj*) 4 mg IV Q6H PRN PRN Reason: NAUSEA Allergies/Intolerances: NKDA Social History: No tobacco, rare alcohol. Family History: Biliary cancer (mother). Cardiac disease (father). Review of Systems: 12 system review is otherwise negative. OBJECTIVE: Temp Pulse Resp BP Pulse Ox 97.1 F 95 20 140/80 96 12/22/19 15:15 12/22/19 15:15 12/22/19 15:15 12/22/19 15:15 12/22/19 15:15 General: alert, pleasant, oriented, no distress ENT: neck supple, no thyromegaly, no bruit is heard Chest: CTAB, no wheezing or crackles CV: RRR, no murmur Abdomen: soft, non-tender Extremities: no edema, distal pulses intact Skin: warm, dry, no rash Neuro: grossly intact motor/sensory in extremities Psych: restricted affect, pleasant Labs: Glucose Results 12/21/19 20:42 351 12/22/19 11:30 404 WBC 7.1 10^3/uL (3.5-10.8) 12/21/19 17:56 RBC 4.55 10^6 /uL (3.70-4.87) 12/21/19 17:56 Hgb 13.9 g/dL (12.0-16.0) 12/21/19 17:56 Hct 42 % (35-47) 12/21/19 17:56 MCV 92 fL (80-97) 12/21/19 17:56 MCH 31 pg (27-31) 12/21/19 17:56 MCHC 33 g/dL (31-36) 12/21/19 17:56 RDW 14 % (10-15) 12/21/19 17:56 Plt Count 162 10^3/uL (150-450) 12/21/19 17:56 MPV 12.3 fL (7.4-10.4) H 12/21/19 17:56 Neut % (Auto) 70.6 % 12/21/19 17:56 Lymph % (Auto) 23.4 % 12/21/19 17:56 [place] % (Auto) 4.1 % 12/21/19 17:56 Eos % (Auto) 1.0 % 12/21/19 17:56 Baso % (Auto) 0.9 % 12/21/19 17:56 Absolute Neuts (auto) 5.0 10^3/ul (1.5-7.7) 12/21/19 17:56 Absolute Lymphs (auto) 1.7 10^3/ul (1.0-4.8) 12/21/19 17:56 Absolute Monos (auto) 0.3 10^3/ul (0-0.8) 12/21/19 17:56 Absolute Eos (auto) 0.1 10^3/ul (0-0.6) 12/21/19 17:56 Absolute Basos (auto) 0.1 10^3/ul (0-0.2) 12/21/19 17:56 Absolute Nucleated RBC 0.0 10^3/ul 12/21/19 17:56 Nucleated RBC % 0.1 12/21/19 17:56 ABG pH 7.40 (7.35-7.45) 12/21/19 18:10 ABG pCO2 39 mmHg (35-45) 12/21/19 18:10 ABG pO2 86 mmHg (80-100) 12/21/19 18:10 ABG HCO3 24.5 mmol/L (19-31) 12/21/19 18:10 ABG O2 Saturation 98.2 % (94.0-98.0) H 12/21/19 18:10 ABG Base Excess -0.5 mmol/L (-2.0-2.0) 12/21/19 18:10 Sodium 135 mmol/L (135-145) 12/22/19 05:32 Potassium 3.9 mmol/L (3.5-5.0) 12/22/19 05:32 Chloride 101 mmol/L (101-111) 12/22/19 05:32 Carbon Dioxide 24 mmol/L (22-32) 12/22/19 05:32 Anion Gap 10 mmol/L (2-11) 12/22/19 05:32 BUN 16 mg/dL (6-24) 12/22/19 05:32 Creatinine 1.05 mg/dL (0.51-0.95) H 12/22/19 05:32 Est GFR ( Amer) 69.9 (>60) 12/22/19 05:32 Est GFR (Non-Af Amer) 57.8 (>60) 12/22/19 05:32 BUN/Creatinine Ratio 15.2 (8-20) 12/22/19 05:32 Glucose 399 mg/dL (70-100) H 12/22/19 05:32 POC Glucose (mg/dL) 379 mg/dL (70-100) H 12/22/19 08:31 Glucose Meter Confirm 380 mg/dL (70-100) H 12/22/19 11:56 Hemoglobin A1c 11.7 % (4.0-5.6) H 12/22/19 05:32 Lactic Acid 1.2 mmol/L (0.5-2.0) 12/21/19 17:56 Calcium 9.0 mg/dL (8.6-10.3) 12/22/19 05:32 Phosphorus 4.5 mg/dL (2.5-5.0) 12/22/19 05:32 Magnesium 1.5 mg/dL (1.9-2.7) L 12/22/19 05:32 Total Bilirubin 0.50 mg/dL (0.2-1.0) 12/21/19 17:56 AST 91 U/L (13-39) H 12/21/19 17:56 ALT 168 U/L (7-52) H 12/21/19 17:56 Alkaline Phosphatase 70 U/L (34-104) 12/21/19 17:56 Total Creatine Kinase 55 U/L (10-223) 12/21/19 17:56 C-Reactive Protein 11.52 mg/L (<8.01) H 12/21/19 17:56 Total Protein 7.0 g/dL (6.4-8.9) 12/21/19 17:56 Albumin 4.2 g/dL (3.2-5.2) 12/21/19 17:56 Globulin 2.8 g/dL (2-4) 12/21/19 17:56 Albumin/Globulin Ratio 1.5 (1-3) 12/21/19 17:56 Urine Color Yellow 12/21/19 17:42 Urine Appearance Cloudy 12/21/19 17:42 Urine pH 5.0 (5-9) 12/21/19 17:42 Ur Specific [place] 1.029 (1.010-1.030) 12/21/19 17:42 Urine Protein Negative (Negative) 12/21/19 17:42 Urine Ketones 1+ (Negative) A 12/21/19 17:42 Urine Blood 3+ (Negative) A 12/21/19 17:42 Urine Nitrate Negative (Negative) 12/21/19 17:42 Urine Bilirubin Negative (Negative) 12/21/19 17:42 Urine Urobilinogen Negative (Negative) 12/21/19 17:42 Ur Leukocyte Esterase Negative (Negative) 12/21/19 17:42 Urine WBC (Auto) 3+(>20/hpf) (Absent) A 12/21/19 17:42 Urine RBC (Auto) 3+(>10/hpf) (Absent) A 12/21/19 17:42 Ur Squamous Epith Cells Present (Absent) A 12/21/19 17:42 Urine Bacteria Absent (Absent) 12/21/19 17:42 Urine Glucose 3+(>=500 mg/dl) (Negative) A 12/21/19 17:42 Blood Type A Positive 12/21/19 17:56 Antibody Screen Negative 12/21/19 17:56
[2019-12-22] MEDS ORDERED: Insulin GLARGINE(*) 1 UNITS UNIT SUBCUT SCH (21:00)
[2019-12-23] MEDS: Levothyroxine TAB* 100 MCG TAB PO SCH (06:28)
[2019-12-23 06:48] LABS: BUN/Creatinine Ratio 16.9 (8-20); Calcium 8.5 mg/dL (8.6-10.3); EGFR African American 91.7 (>60); EGFR Non-African American 75.8 (>60); Magnesium 1.7 mg/dL (1.9-2.7); Potassium 4.1 mmol/L (3.5-5.0)
[2019-12-23] MEDS ORDERED: metFORMIN* 1,000 MG TAB PO SCH (08:30)
[2019-12-23] MEDS: Lisinopril TAB* 10 MG PO SCH (08:56)
[2019-12-23] MEDS: Insulin LISPRO* 1 UNITS UNIT SUBCUT SCH ×4 (08:57→12:43)
[2019-12-23] MEDS ORDERED: Magnesium Sulfate 2 GM IV* 2 GM/50 ML BAG IVPB ONE (09:05)
[2019-12-23 15:29] VITALS: BP 141/76
[2019-12-24] MEDS ORDERED: Magnesium Oxide TAB* 400 MG PO SCH (09:00)
--- NOTE | 2019-12-24 11:11 | DS ---
DISCHARGE SUMMARY: DATE OF ADMISSION: 12/21/19 DATE OF DISCHARGE: 12/23/19 PROVIDER: Sharon Montenegro NP PRIMARY CARE PROVIDER: Dr. Chago Aguilar. ATTENDING PHYSICIAN WHILE IN THE HOSPITAL: Dr. Yeny Burnett * (dictated by Sharon Montenegro NP). PRIMARY DIAGNOSES: 1. Hyperglycemia. 2. Hypomagnesemia. SECONDARY DIAGNOSES: 1. Type 2 diabetes. 2. Anemia. 3. Asthma. 4. Hypothyroidism. STUDIES COMPLETED WHILE IN THE HOSPITAL: None. She had routine lab work drawn. DISCHARGE MEDICATIONS: New home medications: 1. Glipizide XL 5 mg p.o. daily. 2. Metformin ER 1500 mg at bedtime. 3. Magnesium oxide 400 mg p.o. daily. 4. Lantus 30 units subcu at bedtime. Continued home medications: 1. Levothyroxine 100 mcg p.o. daily. 2. Albuterol HFA inhaler 2 puffs q.6 hours as needed for shortness breath. 3. Lisinopril 20 mg p.o. daily. Discontinued medication: Metformin 1000 mg b.i.d. HISTORY OF PRESENT ILLNESS AND HOSPITAL COURSE: Ms. Fuentes is a 39-year-old female with past medical history significant for diabetes, managed on metformin b.i.d. for the past several years, who came to the emergency room feeling unwell and having diabetic symptoms. The patient reported increased urination, increased thirst, 20- pound weight loss in the last 23 days. The patient was seen at her primary care provider and was concerned, so she presented to the emergency room for further evaluation. The patient also reported that she was having heavy bleeding with clots and this has been going on for several months. While in the emergency room, the patient was found to be hyperglycemic. She was given IV fluids and IV insulin and Hospital Medicine was asked to see and evaluate and asked to admit due to her hyperglycemia. While in the hospital, the patient did receive IV fluids and insulin. Her blood sugars trended down throughout the hospitalization. On the day of discharge, her blood sugar was 230 to 260. The patient did have a hemoglobin A1c that was 11.7 during this hospitalization. Today, on the day of discharge, the patient reports she is feeling well. REVIEW OF SYSTEMS: The patient denies any complaints today. Denies any fever, chills. Denies any chest pain or shortness of breath. Denies any abdominal pain, nausea, vomiting, diarrhea. Denies any urinary frequency, urgency, or pain with urination. She denies cough or congestion. PHYSICAL EXAMINATION: General: At this time, Ms. Fuentes is a 39-year-old female. She is sitting in a chair in her hospital room. She is in no acute distress. Vital Signs: Blood pressure 141/76, heart rate is 93, respirations are 20, O2 saturation 97%, temperature was 98.4. HEENT: Head is atraumatic normocephalic. Eyes: EOMs are intact. Sclerae are anicteric and not pale. Oral mucosa is moist. Neck is supple. Lungs are clear to auscultation bilaterally. No wheezes, rales, or rhonchi. Cardiac: S1, S2. Regular rate and rhythm. No murmurs, rubs, or gallops. Abdomen: Obese, soft, nontender. Bowel sounds are present x4. She is able to move all 4 extremities. There is no clubbing or cyanosis. Neurologic: She is awake, alert, and oriented x3. Speech is clear. Thought process is intact. There are no gross focal deficits. Skin is intact. At this time, Ms. Fuentes is stable for discharge home. DISCHARGE PLAN: Ms. Fuentes will be discharged to home. Activity as tolerated. 1. Hyperglycemia. The patient was hyperglycemic during this hospitalization. She was started on Lantus 30 units subcu daily with improvement of her blood sugars. She should check her blood sugars before meals and at bedtime daily. She will be placed on glipizide 5 mg p.o. daily as well as metformin ER 1500 mg at h.s. and will start Lantus 30 units subcu at bedtime. She should keep a log of her blood sugars over the next 2 to 3 weeks and bring them to her appointment for further recommendation in dosing adjustments on her insulin. The patient was instructed to stop taking her current metformin and start metformin ER 1500 mg p.o. daily. The patient did have an A1c of 11.7 during the hospitalization consistent with uncontrolled type 2 diabetes. 2. Hypertension. The patient should continue on her home hypertensive medication of lisinopril. 3. Vaginal bleeding. The patient does report vaginal bleeding did improve throughout her hospitalization. I would recommend an outpatient consultation to [facility] for further evaluation of prolonged menstruation and heavy vaginal bleeding. 4. Other chronic medical conditions. The patient is to resume home medications as previously prescribed. I have discussed this with my attending, Dr. Yeny Burnett; she is in agreement with my plan. CONDITION ON DISCHARGE: Stable. DISPOSITION ON DISCHARGE: Home. TIME SPENT: Time spent on this discharge was 45 minutes, greater than half the time was spent at the bedside reviewing discharge plans and instructions. SHARON MONTENEGRO, MYAH [id number]/CPS #: [id number] VERONICA
== END 2019-12-23 15:50 | disposition home or self-care (01) ==
LOC: ED 17:31 → MED 23:06
PROVIDERS: ADMIT Internal Medicine; ATTEND Internal Medicine
DX: R10.9 Unspecified abdominal pain (principal); E86.0 Dehydration; E11.65 Type 2 diabetes mellitus with hyperglycemia; E83.42 Hypomagnesemia; D64.9 Anemia, unspecified; N93.9 Abnormal uterine and vaginal bleeding, unspecified; J45.909 Unspecified asthma, uncomplicated; Z79.899 Other long term (current) drug therapy; Z87.891 Personal history of nicotine dependence
CPT/HCPCS: 36415; 80048; 80053; 81003; 81015; 82550; 82803; 82947; 83036; 83605; 83735; 84100; 85025; 86140; 86850; 86900; 86901; 87086; 96365; 96366; 99284; A9270-GY; G0378; J3475

== ENCOUNTER 2022-03-27 05:57 | Inpatient (IN) ==
[~2022-03-27 05:57] MED LIST: Naloxone 0.4 mg VIAL 0.4 mg/ml 1 ml VIAL IV PRN; Ondansetron 4 mg VIAL 2 MG/ML 2 ml VIAL IV PRN
[2022-03-27] MEDS ORDERED: Buffered Lidocaine 1% SYRIN 1 ml INTRADERM ONE (06:00)
[2022-03-27] MEDS ORDERED: Lactated Ringers 1000 ml BAG 1,000 ML IV SCH (06:00)
[2022-03-27] MEDS ORDERED: Scopolamine 1 mg/72hr PATCH TRANSDERM ONE (06:00)
[2022-03-27] MEDS ORDERED: ceFAZolin 2 GM PREMIX 2 GM/50 ML BAG ONE (06:14)
[2022-03-27] MEDS ORDERED: Scopolamine 1 mg/72hr PATCH ONE (06:14)
[2022-03-27] MEDS ORDERED: Heparin 5000 UNITS/ML 1 mL VIAL ONE (06:14)
[2022-03-27] MEDS ORDERED: Lidocaine 1% w EPI 1:100,000 MDV 20 ML VIAL ONE (06:51)
[2022-03-27] MEDS ORDERED: Bupivacaine 0.5% 50 ML MDV VIAL ONE (06:51)
[2022-03-27] MEDS ORDERED: Methylene Blue 0.5 % 50 MG/10 ML AMP IV ONE (06:51)
[2022-03-27] MEDS ORDERED: ceFAZolin VIAL 1 GM in NS 0.9% 50 ML 50 ML IVPB ONE (07:00)
[2022-03-27] MEDS ORDERED: fentaNYL 250 mcg/5 ml 50 MCG/ML 5 ml VIAL (250 MCG) ONE (07:04)
[2022-03-27] MEDS ORDERED: Succinylcholine 200 mg VIAL 20 mg/ml 10 ml VIAL (200 mg) ONE (07:04)
[2022-03-27] MEDS ORDERED: Propofol 10 MG/ML 20 ML BTL ONE (07:04)
[2022-03-27] MEDS ORDERED: Midazolam 2 mg/2 ml VIAL 1 mg/ml 2 ml VIAL (2 mg) ONE (07:04)
[2022-03-27] MEDS ORDERED: EPHEDrine (Pressors) 50 MG/ML VIAL ONE (07:04)
[2022-03-27] MEDS ORDERED: Rocuronium 50 mg VIAL 10 mg/ml 5 ml VIAL (50 mg) ONE ×2 (07:06→08:30)
[2022-03-27] MEDS ORDERED: Phenylephrine 40 mcg/mL 10mL (400mcg) SYRINGE ONE (07:07)
[2022-03-27 07:40] LABS: Rapid COVID-19 Molecular Undetected (Undetected)
[2022-03-27] MEDS ORDERED: Sugammadex 500 MG/5 ML 5 ml VIAL IV PUSH ONE (09:54)
[2022-03-27] MEDS ORDERED: Ondansetron 4 mg VIAL 2 MG/ML 2 ml VIAL IV PRN (10:06)
[2022-03-27] MEDS ORDERED: HYDROmorphone 0.5 MG/0.5 ML SYRINGE IV SLOW PU PRN (10:06)
[2022-03-27] MEDS ORDERED: HYDROcodone/ACET. 7.5/325 LIQ 15 ML UDC PO PRN (10:06)
[2022-03-27] MEDS ORDERED: Albuterol/Ipratropium NEB.SOL (2.5/0.5 MG) 3 ML NEB.SOLN INH PRN (10:10)
[2022-03-27] MEDS ORDERED: Dextrose 50% Syringe 50 ml 25 GM/50 ML SYRINGE IV PUSH PRN (10:11)
[2022-03-27] MEDS: fentaNYL 100 mcg/2 ml 50 MCG/ML VIAL IV PRN ×4 (10:16→10:53)
[2022-03-27] MEDS ORDERED: fentaNYL 100 mcg/2 ml 50 MCG/ML VIAL ONE ×3 (10:17→11:10)
[2022-03-27] MEDS ORDERED: HYDROmorphone 1 MG/1 ML SYRINGE ONE (10:37)
[2022-03-27] MEDS ORDERED: Ondansetron 4 mg VIAL 2 MG/ML 2 ml VIAL ONE (10:57)
[2022-03-27] MEDS: HYDROmorphone 1 MG/1 ML SYRINGE IV PRN ×5 (11:00→11:20)
[2022-03-27] MEDS: Lactated Ringers 1000 ml BAG 1,000 ML IV SCH ×2 (12:24→20:15)
[2022-03-27] MEDS: Heparin 5000 UNITS/ML 1 mL VIAL SUBCUT SCH (21:58)
[2022-03-28] MEDS: Heparin 5000 UNITS/ML 1 mL VIAL SUBCUT SCH ×2 (06:35→14:50)
[2022-03-28] MEDS: Lactated Ringers 1000 ml BAG 1,000 ML IV SCH (06:37)
[2022-03-28] MEDS ORDERED: D5W 1/2 NS KCl 20 meq 1000 ml 1,000 ML IV SCH (11:00)
[2022-03-28 11:37] VITALS: BP 113/71
== END 2022-03-28 16:00 | disposition home or self-care (01) | DRG 403 ==
LOC: AA 05:57 → SSU 11:44
PROVIDERS: ADMIT Surgery; ATTEND Surgery

== ENCOUNTER 2022-04-22 12:05 | Observation (INO) ==
[2022-04-22] MEDS ORDERED: Lactated Ringers 1000 ml BAG 1,000 ML IV ONE ×2 (14:18→23:16)
[2022-04-22] MEDS ORDERED: Thiamine 100 MG/ML 2 ml VIAL 100 MG, Folic Acid IV 1 MG, Multiple Vitamin IV ADULT 10 M... IV ONE (15:00)
[2022-04-22 15:12] LABS: Albumin 4.3 g/dL (3.2-5.2); Albumin/Globulin Ratio 1.7 (1-3); Calcium 9.7 mg/dL (8.6-10.3); Globulin 2.6 g/dL (2-4); Potassium 4.9 mmol/L (3.5-5.0); Total Bilirubin 0.5 mg/dL (0.2-1.0); Total Protein 6.9 g/dL (6.4-8.9); eGFR CKD-EPI 20.3 (>60)
[2022-04-22 15:15] LABS: ABS Eosinophils 0.1 10^3/ul (0-0.6); ABS Lymphocytes 1.7 10^3/ul (1.0-4.8); ABS Monocytes 0.4 10^3/ul (0-0.8); ABS Neutrophils 3.9 10^3/ul (1.5-7.7); Eosinophil % 0.9 %; Hematocrit 35 % (35-47); Hemoglobin 11.1 g/dL (12.0-16.0); Lymphocyte % 28.5 %; Mean Corpuscular HGB Conc 32 g/dL (31-36); Mean Corpuscular Hemoglobin 29 pg (27-31); Mean Corpuscular Volume 92 fL (80-97); Mean Platelet Volume 12.4 fL (7.4-10.4); Platelet Count 174 10^3/uL (150-450); Red Blood Count 3.83 10^6 /uL (3.70-4.87); Red Cell Distribution Width 15 % (10-15); White Blood Count 6.1 10^3/uL (3.5-10.8)
[2022-04-22 22:40] LABS: Calcium 8.4 mg/dL (8.6-10.3); Potassium 4.5 mmol/L (3.5-5.0); eGFR CKD-EPI 25.5 (>60)
[2022-04-23 00:25] LABS: Urine Creatinine Concentration 213.19 mg/dL
[2022-04-23 00:41] LABS: Urine Appearance Cloudy; Urine Bilirubin Negative (Negative); Urine Blood 1+ (Negative); Urine Color Yellow; Urine Glucose Negative (Negative); Urine Ketones Trace (Negative); Urine Nitrite Negative (Negative); Urine Protein Negative (Negative); Urine Specific Gravity 1.015 (1.002-1.030); Urine Urobilinogen Negative (Negative)
[2022-04-23 00:48] LABS: Urine Bacteria 1+ (Absent); Urine Red Blood Cell 3+(>10/hpf) (Absent); Urine Squamous Epithelial Cell Present (Absent); Urine White Blood Cell 1+(6-10/hpf) (Absent)
[2022-04-23] MEDS ORDERED: Lactated Ringers 1000 ml BAG 1,000 ML IV ONE (01:50)
[2022-04-23 02:14] LABS: Calcium 8.4 mg/dL (8.6-10.3); Potassium 4.6 mmol/L (3.5-5.0); eGFR CKD-EPI 27.8 (>60)
[2022-04-23 03:26] LABS: Calcium 8.4 mg/dL (8.6-10.3); Potassium 4.3 mmol/L (3.5-5.0); eGFR CKD-EPI 29.8 (>60)
[2022-04-23] MEDS ORDERED: NS 0.9% 1000 ml BAG 1,000 ML IV SCH (05:30)
[2022-04-23] MEDS ORDERED: BEBTELOVIMAB 175 MG/2 ML VIAL IV ONE (05:30)
[2022-04-23] MEDS ORDERED: Albuterol HFA INHALER 8 gm MDI INH PRN (05:38)
[2022-04-23] MEDS ORDERED: Fluticasone NASAL SPRAY 50MCG 16 gm SPRAY BTL INTRANASAL PRN (05:38)
[2022-04-23] MEDS: Enoxaparin 40 MG/0.4 ML SYR SUBCUT SCH (06:51)
[2022-04-23] MEDS: Lactated Ringers 1000 ml BAG 1,000 ML IV SCH ×2 (11:02→23:58)
[2022-04-23] MEDS: Multivitamins/Minerals TAB PO SCH ×2 (11:22→11:25)
[2022-04-23 15:43] LABS: Calcium 8.8 mg/dL (8.6-10.3); Potassium 4.5 mmol/L (3.5-5.0); eGFR CKD-EPI 41.4 (>60)
[2022-04-24] MEDS: Enoxaparin 40 MG/0.4 ML SYR SUBCUT SCH (06:07)
[2022-04-24 06:18] LABS: ABS Eosinophils 0.1 10^3/ul (0-0.6); ABS Lymphocytes 1.5 10^3/ul (1.0-4.8); ABS Monocytes 0.2 10^3/ul (0-0.8); ABS Neutrophils 1.8 10^3/ul (1.5-7.7); Eosinophil % 3.4 %; Hematocrit 30 % (35-47); Hemoglobin 9.5 g/dL (12.0-16.0); Lymphocyte % 40.4 %; Mean Corpuscular HGB Conc 32 g/dL (31-36); Mean Corpuscular Hemoglobin 29 pg (27-31); Mean Corpuscular Volume 90 fL (80-97); Mean Platelet Volume 11.5 fL (7.4-10.4); Nucleated Red Blood Cells % 0.1; Platelet Count 130 10^3/uL (150-450); Red Blood Count 3.32 10^6 /uL (3.70-4.87); Red Cell Distribution Width 15 % (10-15); White Blood Count 3.6 10^3/uL (3.5-10.8)
[2022-04-24 06:52] LABS: Calcium 8.7 mg/dL (8.6-10.3); Potassium 4.7 mmol/L (3.5-5.0); eGFR CKD-EPI 53.3 (>60)
[2022-04-24] MEDS: Multivitamins/Minerals TAB PO SCH (07:07)
[2022-04-24 13:14] VITALS: BP 128/59
== END 2022-04-24 15:40 | disposition home or self-care (01) ==
LOC: ED 12:05 → EDHOLD 12:05 → SUATTDRO 04-23 05:29 → MED 04-23 09:39
PROVIDERS: ADMIT Internal Medicine; ATTEND Student in an Organized Health Care Education/Training Program